=== PATIENT | male | born 1965 ===

== ENCOUNTER 2020-09-25 06:50 | Outpatient (REF) | payer OTHER, SELFPAY ==
[2020-09-25 08:48] LABS: PSA,Total (Free>4and<10) 4.02 ng/mL (0.00-4.00)
[2020-09-26 11:03] LABS: Percent Free Prostate Spec Ag 26 % (calc) (>25); Prostate Specific Ag Total 3.8 ng/mL (< OR = 4.0)
== END 2020-09-25 06:51 | disposition home or self-care (01) ==
LOC: HO.LAB 06:50
PROVIDERS: PCP Internal Medicine; Visit Provider Urology
DX: N40.0 Benign prostatic hyperplasia without lower urinary tract symptoms (principal); Z12.5 Encounter for screening for malignant neoplasm of prostate
CPT/HCPCS: 36415; 84153; 84154

== ENCOUNTER 2021-09-17 14:59 | Outpatient (REF) | payer OTHER, SELFPAY ==
[2021-09-17 15:14] LABS: MANUAL DIFF FLAG NO
[2021-09-17 15:33] LABS: Basophils Absolute Auto 0.1 X10*3/uL (0.0-0.2); Basophils Percent Auto 0.6 % (0-2); Eosinophils Absolute Auto 0.2 X10*3/uL (0.0-0.4); Eosinophils Percent Auto 2.2 % (0-4); Hematocrit 44.7 % (42.0-52.0); Hemoglobin 14.9 g/dl (14.0-18.0); Imm Gran Abs Auto 0.02 X10*3/uL (0.00-0.03); Imm Gran Pct Auto 0.2 % (0.0-0.4); Mean Corpuscular HGB Conc 33.3 g/dl (31.0-36.0); Mean Corpuscular Hemoglobin 29.3 pg (27.0-33.0); Mean Corpuscular Volume 87.8 fL (80.0-98.0); Mean Platelet Volume 10.6 fL (9.4-12.4); Monocytes Absolute Auto 0.8 X10*3/uL (0.1-1.2); Monocytes Percent Auto 8.5 % (2-11); Neutrophils Percent Auto 66.5 % (45-73); Platelet Count 279 X10*3/uL (160-400); Red Blood Count 5.09 X10*6/uL (4.60-5.80); Red Cell Distribution Width 12.9 % (11.0-16.0); White Blood Count 9.1 X10*3/uL (4.8-10.8)
[2021-09-17 15:59] LABS: Alanine Aminotransferase 17 U/L (0-40); Albumin Level 4.5 g/dL (3.5-5.0); Alkaline Phosphatase 61 U/L (39-117); Anion Gap 14 (12-20); Aspartate Amino Transferase 20 U/L (5-37); Bilirubin Total 0.8 mg/dL (0.0-1.0); Blood Urea Nitrogen 14 mg/dL (9-16); Carbon Dioxide 26 mmol/L (22-29); Chloride 104 mmol/L (96-108); Cholesterol 177 mg/dL; Estimated Glomerular Filt Rate > 60; Glucose Random 80 mg/dL (60-115); HDL Cholesterol 42 mg/dL; LDL Cholesterol Calculated 125 mg/dl; Potassium 4.1 mmol/L (3.3-5.1); Sodium 140 mmol/L (135-145); Total Protein 7.3 g/dL (6.5-8.0); Triglycerides 53 mg/dL
[2021-09-17 16:21] LABS: Free T4 (Free Thyroxine) 0.96 ng/dL (0.71-1.85); Thyroid Stimulating Hormone 1.56 uIU/mL (0.32-4.0); Vitamin D 25-OH Total 19.9 ng/mL (>30)
[2021-09-17 16:29] LABS: Folate 11.9 ng/mL (> or = 4.0); Vitamin B12 570 pg/mL (200-900)
[2021-09-22 20:36] LABS: PSA, Ultra Sensitive 3.07 ng/mL
== END 2021-09-17 15:00 | disposition home or self-care (01) ==
LOC: HO.LAB 14:59
PROVIDERS: PCP Internal Medicine; Visit Provider Internal Medicine
DX: E78.00 Pure hypercholesterolemia, unspecified (principal); R97.20 Elevated prostate specific antigen [PSA]; K21.9 Gastro-esophageal reflux disease without esophagitis; Z12.5 Encounter for screening for malignant neoplasm of prostate
CPT/HCPCS: 36415; 80053; 80061; 82306; 82607; 82746; 84153; 84439; 84443; 85025

== ENCOUNTER 2022-08-03 08:32 | Emergency (ER) | payer OTHER, SELFPAY ==
[2022-08-03 09:12] VITALS: BP 147/93; PULSE 76; RESP 18; O2SAT 97; BMI 30.4
--- NOTE | 2022-08-03 09:26 | ED_ITS ---
HPI - Skin/Abscess/Foreign Bdy General Chief complaint: Skin/Abscess/Foreign Body Stated complaint: Rash on arms, stomach , legs Time Seen by Provider: 08/03/22 09:16 History of Present Illness HPI narrative: Patient complains of itchy rash on his arms legs and stomach which started about a week ago and is slowly spreading, there is nothing else associated with the rash there is no pain there is no bleeding there is no fever Related Data Previous Rx's Medication Instructions Recorded hydrocortisone 2.5 % topical cream 1 appl MD BID-QID PRN hemorrhoids 02/04/22 with perineal applicator 15 days #30 grams (Proctosol HC) cetirizine 10 mg tablet 10 mg PO DAILY PRN rash and itch 08/03/22 #10 tabs prednisone 20 mg tablet 60 mg PO DAILY 3 days #9 tabs 08/03/22 Allergies Allergy/AdvReac Type Severity Reaction Status Date / Time penicillin G Allergy Mild rash Verified 02/04/22 13:21 latex [LATEX] Allergy Unknown RASH Verified 02/04/22 13:21 penicillin V Allergy Unknown rash Verified 02/04/22 13:21 Penicillins [PENICILLINS] Allergy Unknown HIVES Verified 02/04/22 13:21 Review of Systems Review of Systems: positive for skin rash Negatives are no fever no chills no dizziness no headache no neck pain no stiff neck no difficulty breathing or swallowing no throat swelling no drooling no chest pain no shortness of breath no wheezing no abdominal pain no nausea or vomiting no joint swelling no pain Yes all other systems are reviewed and are negative [facility] Past Medical History Source: nursing notes reviewed Medical History (Updated 08/04/22 @ 00:00 by Honey Caban) GERD (gastroesophageal reflux disease) Hypercholesterolemia Vitamin D deficiency Surgical History (Updated 09/12/20 @ 12:43 by ALEXANDER Flowers) History of removal of cyst Family History Family History (Updated 09/12/20 @ 12:44 by ALEXANDER Flowers) Father Colon cancer Hypercholesteremia Mother Osteoporosis Thyroid disease Past heart attack Paternal Grandfather Myocardial infarction Brother In good health Brother In good health Social History Social History (Updated 10/02/21 @ 16:27 by Agustin Beauchamp MD) Alcohol intake: current Patient Tobacco Use Status: Never used Tobacco e-Cigarette/Vaping Use: Never Used Second Hand Smoke Exposure: No Advance Directives: No Advance Directives Information Provided: No Physical Exam Vital Signs: Vital Signs: Last Vital Signs Temp 98.6 F 08/03/22 09:31 Pulse 76 08/03/22 09:12 Resp 18 08/03/22 09:12 BP 147/93 H 08/03/22 09:12 Pulse Ox 97 08/03/22 09:12 O2 Del Method 08/03/22 09:12 BMI result Body Mass Index 30.4 general appearance comfortable relax no distress Eyes no redness or discharge The sinuses are not tender there is no congestion The pharynx is clear without redness swelling or exudate, there is no swelling of lips tongue or uvula there is no drooling voice is normal, there are no sores in the mouth, membranes are moist Neck is supple Chest clear to auscultation bilateral with full symmetric equal breath sounds no wheezing Abdomen soft nontender Extremities for range of motion x4 Skin there is a diffuse maculopapular rash on chest arms legs, there is no rash in the web spaces between the fingers, there is no tenderness, no petechiae no purpura Course Course Course Narrative: patient with nonspecific rash is treated with antihistamine and steroids, at this point there is nothing associated with the rash there are no bullae no petechiae there is no evidence of cellulitis no wounds and he is discharged with symptomatic treatment Medications Administered Discontinued Medications Generic Name Dose Route Start Last Admin Trade Name Wileyq PRN Reason Stop Dose Admin Loratadine 10 mg 08/03/22 09:27 08/03/22 09:45 Loratadine 10 Mg Tablet PO 08/03/22 09:28 10 mg ONCE ONE Administration Prednisone 60 mg 08/03/22 09:27 08/03/22 09:45 Prednisone 20 Mg Tablet PO 08/03/22 09:28 60 mg ONCE ONE Administration Discharge Plan Discharge Clinical Impression: Rash Patient Disposition: Home, Self-Care Additional Instructions: we are treating the rash with steroid and antihistamine Hopefully this will get rid of the rash, but if it does not follow with your doctor and you may need a referral to a word processing operator Return to the ER any time if the rash becomes painful if you get a fever for any worse condition or any concerns Prescriptions: New prednisone 20 mg tablet 60 mg PO DAILY 3 Days Qty: 9 0RF cetirizine 10 mg tablet 10 mg PO DAILY PRN (Reason: rash and itch) Qty: 10 0RF No Action hydrocortisone [Proctosol HC] 2.5 % cream with perineal applicator 1 appl MD BID-QID PRN (Reason: hemorrhoids) 15 Days Qty: 30 0RF Interventions: ED Discharge Assessment Last Done: 08/03/22 09:49 Discharge Date/Time: 08/03/22 09:54
[2022-08-03 09:31] VITALS: TEMP 37
[2022-08-03] MEDS: predniSONE 20 MG TABLET 60 MG PO (09:45)
[2022-08-03] MEDS: Loratadine 10 MG TABLET PO (09:45)
== END 2022-08-03 09:54 | disposition home or self-care (01) ==
PROVIDERS: Emergency Provider Emergency Medicine; PCP Internal Medicine
DX: R21 Rash and other nonspecific skin eruption (principal)
CPT/HCPCS: 99283

== ENCOUNTER 2022-11-08 06:43 | Outpatient (REF) | payer OTHER, SELFPAY ==
[2022-11-08 06:51] LABS: MANUAL DIFF FLAG NO
[2022-11-08 07:31] LABS: Basophils Absolute Auto 0.1 X10*3/uL (0.0-0.2); Basophils Percent Auto 0.7 % (0-2); Eosinophils Absolute Auto 0.5 X10*3/uL (0.0-0.4); Eosinophils Percent Auto 7.1 % (0-4); Hematocrit 46.7 % (42.0-52.0); Hemoglobin 15.6 g/dl (14.0-18.0); Imm Gran Abs Auto 0.02 X10*3/uL (0.00-0.03); Imm Gran Pct Auto 0.3 % (0.0-0.4); Lymphocytes Absolute Auto 1.9 X10*3/uL (1.2-4.9); Lymphocytes Percent Auto 25.1 % (20-40); Mean Corpuscular HGB Conc 33.4 g/dl (31.0-36.0); Mean Corpuscular Hemoglobin 29.8 pg (27.0-33.0); Mean Corpuscular Volume 89.1 fL (80.0-98.0); Mean Platelet Volume 11.1 fL (9.4-12.4); Monocytes Absolute Auto 0.8 X10*3/uL (0.1-1.2); Monocytes Percent Auto 10.8 % (2-11); Neutrophils Absolute Auto 4.2 x10*3/uL (2.0-8.3); Platelet Count 297 X10*3/uL (160-400); Red Blood Count 5.24 X10*6/uL (4.60-5.80); Red Cell Distribution Width 13.1 % (11.0-16.0); White Blood Count 7.5 X10*3/uL (4.8-10.8)
[2022-11-08 08:03] LABS: Alanine Aminotransferase 18 U/L (0-40); Albumin Level 4.5 g/dL (3.5-5.0); Alkaline Phosphatase 64 U/L (39-117); Anion Gap 15 (12-20); Aspartate Amino Transferase 20 U/L (5-37); Blood Urea Nitrogen 19 mg/dL (9-16); Calcium 9.5 mg/dL (8.4-10.2); Carbon Dioxide 26 mmol/L (22-29); Chloride 102 mmol/L (96-108); Cholesterol 184 mg/dL; Estimated Glomerular Filt Rate > 60; Glucose Random 85 mg/dL (60-115); HDL Cholesterol 46 mg/dL; LDL Cholesterol Calculated 128 mg/dl; Potassium 4.1 mmol/L (3.3-5.1); Sodium 139 mmol/L (135-145); Triglycerides 50 mg/dL
[2022-11-08 08:34] LABS: Folate 6.8 ng/mL (> or = 4.0); Free T4 (Free Thyroxine) 1.01 ng/dL (0.71-1.85); Prostate Specific Antigen Scr 2.51 ng/mL (<0.05-4.0); Thyroid Stimulating Hormone 1.66 uIU/mL (0.32-4.0); Vitamin B12 501 pg/mL (200-900)
== END 2022-11-08 06:44 | disposition home or self-care (01) ==
LOC: HO.LAB 06:43
PROVIDERS: PCP Internal Medicine; Visit Provider Internal Medicine
DX: K21.9 Gastro-esophageal reflux disease without esophagitis (principal); E78.00 Pure hypercholesterolemia, unspecified; R97.20 Elevated prostate specific antigen [PSA]; Z12.5 Encounter for screening for malignant neoplasm of prostate
CPT/HCPCS: 36415; 80053; 80061; 82607; 82746; 84153; 84439; 84443; 85025

== ENCOUNTER 2023-04-15 15:24 | Outpatient (AMB) | payer OTHER, SELFPAY ==
[2023-04-15 15:29] VITALS: BP 130/76; PULSE 76; O2SAT 98; BMI 28.5
--- NOTE | 2023-04-15 15:29 | A.OFFPC_ITS ---
Vital Signs 04/15/23 15:29 Height 5 ft 6 in Weight 176 lb 6 oz BMI 28.5 BP 130/76 Blood Pressure Location Lt brachial Position Sitting Pulse 76 Pulse Source Pulse Oximeter Pulse Oximetry (%) 98 Oxygen Delivery Method Room Air Intake Visit Reasons: cholesterol and PSA elevation Allergies penicillin G Allergy (Mild, Verified 04/15/23 15:30) rash latex [LATEX] Allergy (Unknown, Verified 04/15/23 15:30) RASH penicillin V Allergy (Unknown, Verified 04/15/23 15:30) rash Penicillins [PENICILLINS] Allergy (Unknown, Verified 04/15/23 15:30) HIVES Tobacco use date assessed: 10/08/22 Dental Screening Dental Screen Date: 04/15/23 Did you have a dental visit in the last 12 months?: Yes Did you have a dental problem in the last 6 months where you did not have access to dental care?: No Was dental information given to patient?: Patient has dentist HPI cholesterol and PSA elevation HPI Details 57-year-old overweight male with a history of GERD hypercholesterolemia constipation coming in for follow-up. Last seen in September 2022 requested blood work had a physical at that time. Patient is here for follow-up. seen dermatology - was told psoriasis and advised less meat, mild in diet, low fried in diet. saw ENT also nasal congestion and was told has nasal polyp- advised nasal steroid but pateint declined [facility] Medical History (Updated 04/15/23 @ 16:28 by Agustin Beauchamp MD) GERD (gastroesophageal reflux disease) Hypercholesterolemia Vitamin D deficiency Yeast infection of the skin Surgical History History of removal of cyst Family History (Updated 04/15/23 @ 15:31 by Hevaenly Echeverria MA) Father Colon cancer Hypercholesteremia Mother Osteoporosis Thyroid disease Past heart attack Paternal Grandfather Myocardial infarction Brother In good health Brother In good health Social History (Updated 10/08/22 @ 16:19 by Agustin Beauchamp MD) Housing: Apartment Alcohol intake: current Patient Tobacco Use Status: Never used Tobacco e-Cigarette/Vaping Use: Never Used Second Hand Smoke Exposure: No Current occupational status: employed Cognitive needs: No Hearing needs: No Vision needs: Yes Questionnaire PHQ-9 Over the last 2 weeks, how often have you been bothered by any of the following problems? 1. Little interest or pleasure in doing things: not at all 2. Feeling down, depressed, or hopeless: not at all 3. Trouble falling or staying asleep, or sleeping too much: not at all 4. Feeling tired or having little energy: not at all 5. Poor appetite or overeating: not at all 6. Feeling bad about yourself - or that you are a failure or have let yourself or your family down: not at all 7. Trouble concentrating on things, such as reading the newspaper or watching television: not at all 8. Moving or speaking so slowly that other people could have noticed. Or the opposite - being so fidgety or restless that you have been moving around a lot more than usual: not at all 9. Thoughts that you would be better off or of hurting yourself in some way: not at all Total score: 0 Depression Screening Interpretation: Negative 21680 - PHQ-9 Billing: Yes Source: Developed by Drs. Khalif Marie, Joycelyn Atkins, Germán Palomino and colleagues, with an educational lorri from [employer]. Thrive Questionnaire Date Thrive assessed: 10/08/22 AUDIT C Alcohol Use Questionnaire (AUDIT-C) 1. How often do you have a drink containing alcohol?: Monthly or less 2. How many drinks containing alcohol do you have on a typical day when you are drinking?: 1 or 2 3. How often do you have six or more drinks on one occasion?: Never Total Score: 1 Score Reviewed/Action Taken: No GUANAKITO-7 AMB Questionnaire GUANAKITO-7 Date GUANAKITO - 7 assessed: 10/08/22 Source: Developed by Drs. Khalif Marie, Germán Smith and colleagues, with an educational lorri from [employer]. Physical exam (Primary Care) Vital Signs: Last Vital Signs Pulse 76 04/15/23 15:29 BP 130/76 04/15/23 15:29 Pulse Ox 98 04/15/23 15:29 Oxygen Delivery Method Room Air 04/15/23 15:29 BMI result Body Mass Index 28.5 Tobacco/Smoking Status: Tobacco use Status Tobacco use date assessed 10/08/22 04/15/23 15:37 Patient Tobacco Use Status Never used Tobacco 04/15/23 15:37 e-Cigarette/Vaping Use Never Used 04/15/23 15:37 PHQ-9: PHQ-9 Score PHQ-9: Total score 0 04/15/23 15:37 Depression Screening Interpretation: Negative Thrive Assessment: Date of Thrive Assessment Date Thrive assessed 10/08/22 04/15/23 15:37 Const General: alert; No acute distress Eyes Conjunctivae: conjunctivae normal Resp Auscultation: clear to auscultation bilaterally Cardio Rate: regular rate Rhythm: regular rhythm GI Inspection: Yes normal to inspection Extrem General: Yes normal to inspection and No edema Assessment and Plan Assessment & Plan (1) GERD (gastroesophageal reflux disease): Code(s): K21.9 - Gastro-esophageal reflux disease without esophagitis Qualifiers: Esophagitis presence: without esophagitis Qualified Code(s): K21.9 - Gastro-esophageal reflux disease without esophagitis Plan: Avoid the foods that causes that usually spicy foods, tomato products, juices, coffee, soda and foods that your sensitive to. After eating do not lie down, allow 3-4 hours before in lie down. And keep the head of bed above 30 degrees to avoid the acid from going up. (2) Hypercholesterolemia: Code(s): E78.00 - Pure hypercholesterolemia, unspecified Plan: Avoid fried foods, chicken skin, eggs, butter margarine, pastries and meat. Be it pork or beef they have a lot of cholesterol LDL goal of less than 130 and triglyceride of less than 150 (3) PSA elevation: Code(s): R97.20 - Elevated prostate specific antigen [PSA] Plan: Stable (4) Rosacea: Code(s): L71.9 - Rosacea, unspecified Plan: seeing dermatology (5) Psoriasis: Code(s): L40.9 - Psoriasis, unspecified Plan: seeing dermatology (6) Lateral epicondylitis of left elbow: Code(s): M77.12 - Lateral epicondylitis, left elbow Plan: discussed about treatment (7) Nasal polyp: Code(s): J33.9 - Nasal polyp, unspecified Plan: ff up with ENT Coding Level of Care Code Est Pt Level 4 (18166) Diagnoses GERD (gastroesophageal reflux disease) K21.9 Esophagitis presence: without esophagitis Hypercholesterolemia E78.00 PSA elevation R97.20 Rosacea L71.9 Psoriasis L40.9 Lateral epicondylitis of left elbow M77.12 Nasal polyp J33.9
== END 2023-04-15 16:33 | disposition home or self-care (01) ==
PROVIDERS: PCP Internal Medicine; Visit Provider Internal Medicine
DX: K21.9 Gastro-esophageal reflux disease without esophagitis (principal); E78.00 Pure hypercholesterolemia, unspecified; R97.20 Elevated prostate specific antigen [PSA]; L71.9 Rosacea, unspecified; L40.9 Psoriasis, unspecified; M77.12 Lateral epicondylitis, left elbow; J33.9 Nasal polyp, unspecified
CPT/HCPCS: 99214

== ENCOUNTER 2023-07-16 14:09 | Outpatient (AMB) | payer OTHER, SELFPAY ==
--- NOTE | 2023-07-16 14:10 | MHC.OFFWIV ---
Intake Vital Signs 07/16/23 14:13 Height 5 ft 6 in Weight 179 lb BMI 28.9 BP 142/78 H Blood Pressure Location Rt brachial Position Sitting Pulse 77 Pulse Source Pulse Oximeter Temp 97.9 F Temp Source Temporal Artery Scan Pulse Oximetry (%) 96 Oxygen Delivery Method Room Air Intake Visit Reasons: EST/congestion (lobby masked) Intake Note: Pt is here c/o chest and nose congestion for one week. Patient Tobacco Use Status: Never used Tobacco Allergies penicillin G Allergy (Mild, Verified 07/16/23 14:12) rash latex [LATEX] Allergy (Unknown, Verified 07/16/23 14:12) RASH penicillin V Allergy (Unknown, Verified 07/16/23 14:12) rash Penicillins [PENICILLINS] Allergy (Unknown, Verified 07/16/23 14:12) HIVES Medication List - Last Reconciled 07/16/23 by Joleen Quintana PA-C betamethasone dipropionate 0.05% appl topical calcipotriene 0.005% appl topical BID cetirizine (Zyrtec) 10 mg PO DAILY PRN doxycycline hyclate 100 mg PO BID metronidazole 0.75% appl topical PRN Do you need a note to return to daycare/school/sports/work: No HPI HPI Comments History of Present Illness Details Friday started with congestion Took OTC medicine without relief + blocked nose and yellow mucus expressed He is trying to cough worse at night but no mucus helping No fever but + chills on Friday No body aches or fatigue He did one COVID test which was negative, no known 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 Pt denies chest pain or SOB but feels mucus in nose and chest + forehead/maxillary sinus pressure No ear pain but + blocked PFSH Medical History (Updated 07/16/23 @ 14:52 by Joleen Quintana PA-C) Yeast infection of the skin Vitamin D deficiency Hypercholesterolemia GERD (gastroesophageal reflux disease) Surgical History History of removal of cyst Family History (Updated 04/15/23 @ 15:31 by ALEXANDER Akins) Father Colon cancer Hypercholesteremia Mother Osteoporosis Thyroid disease Past heart attack Paternal Grandfather Myocardial infarction Brother In good health Brother In good health Social History (Updated 10/08/22 @ 16:19 by Agustin Beauchamp MD) Housing: Apartment Alcohol intake: current Patient Tobacco Use Status: Never used Tobacco e-Cigarette/Vaping Use: Never Used Second Hand Smoke Exposure: No Current occupational status: employed Cognitive needs: No Hearing needs: No Vision needs: Yes Physical Exam Vital Signs: Last Vital Signs Temp 97.9 F 07/16/23 14:13 Pulse 77 07/16/23 14:13 BP 142/78 H 07/16/23 14:13 Pulse Ox 96 07/16/23 14:13 Oxygen Delivery Method Room Air 07/16/23 14:13 BMI result Body Mass Index 28.9 General: Non-toxic, NAD. Speaking full sentences. Skin: Warm dry throughout Eye: PERRL, EOMI Lymph: No lymphadenopathy HENT: Airway patent. Uvula midline. No pharyngeal erythema or edema. 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 Bilateral canals clear. TM non-erythematous, non-bulging. + small fluid bilaterally. No TM perforation or hemotympanum noted. + sinus tenderness maxillary bilateral to palpation Respiratory: CTA bilaterally. No wheezes, rales or rhonchi Cardiac: RRR. No murmur MSK: Full ROM extremities. Neurology: A/O. No aphasia or facial droop. Gait without abnormality Psych: Good mood and affect Assessment & Plan Assessment & Plan (1) Sinusitis: Code(s): J32.9 - Chronic sinusitis, unspecified Qualifiers: Sinusitis location: maxillary Chronicity: acute Recurrence: non-recurrent Qualified Code(s): J01.00 - Acute maxillary sinusitis, unspecified Plan Patient seen and evaluated. Lungs CTA Discussed HTN and most likely secondary to OTC decongestant use. He will monitor Doxy for symptoms to take with food Patient gave verbal understanding and had no additional questions or concerns at time of discharge All questions answered Medications: New doxycycline hyclate 100 mg PO BID 14 caps 0RF J32.9 - Chronic sinusitis, unspecified Coding Level of Care Code Est Pt Level 3 (63811) Diagnoses Acute non-recurrent maxillary sinusitis J01.00 Sinusitis location: maxillary Chronicity: acute Recurrence: non-recurrent
[2023-07-16 14:13] VITALS: BP 142/78; PULSE 77; TEMP 36.6; O2SAT 96; BMI 28.9
== END 2023-07-16 15:17 | disposition home or self-care (01) ==
PROVIDERS: PCP Internal Medicine; Visit Provider Physician Assistant
DX: J01.00 Acute maxillary sinusitis, unspecified (principal)
CPT/HCPCS: 99213

== ENCOUNTER 2023-08-27 16:24 | Emergency (ER) | payer OTHER, SELFPAY ==
[2023-08-27 16:37] VITALS: BP 179/106; PULSE 82; RESP 18; TEMP 37.1; O2SAT 98; BMI 28.9
--- NOTE | 2023-08-27 16:37 | ED_ITS ---
HPI - Eye Problem General Chief complaint: Eye Problems Stated complaint: eye injury Time Seen by Provider: 08/27/23 16:42 Source: patient, RN notes reviewed and old records reviewed Mode of arrival: ambulatory History of Present Illness HPI Narrative: 57-year-old male with a past medical history of HLD, GERD, presenting to the ED complaining of left eye pain, irritation, and feeling scratched s/p accidentally poking himself in the left eye with his glasses 4 days ago. Denies wearing contacts. Denies vision change/loss, nausea/vomiting, floaters MD chief complaint: eye redness and eye injury Onset (ago): day(s) Related Data Home Medications Medication Instructions Recorded Confirmed betamethasone dipropionate 0.05 % appl topical 04/15/23 07/16/23 topical cream calcipotriene 0.005 % topical cream appl topical BID 04/15/23 07/16/23 metronidazole 0.75 % topical cream appl topical PRN 04/15/23 07/16/23 Previous Rx's Medication Instructions Recorded cetirizine 10 mg tablet (Zyrtec) 10 mg PO DAILY PRN allergy 08/14/22 symptoms #30 tabs doxycycline hyclate 100 mg capsule 100 mg PO BID #14 caps 07/16/23 erythromycin 5 mg/gram (0.5 %) eye 1 appl ophthalmic (eye) QID 7 days 08/27/23 ointment #3.5 grams Allergies Allergy/AdvReac Type Severity Reaction Status Date / Time penicillin G Allergy Mild rash Verified 07/16/23 14:12 latex [LATEX] Allergy Unknown RASH Verified 07/16/23 14:12 penicillin V Allergy Unknown rash Verified 07/16/23 14:12 Penicillins [PENICILLINS] Allergy Unknown HIVES Verified 07/16/23 14:12 Review of Systems Review of Systems: Constitutional: No Fever, No Chills, No Fatigue, No Malaise ENT/Mouth: No Ear Pain, No Nasal Congestion, No sore throat, No Rhinorrhea, No Swallowing Difficulty Eyes: +Eye Pain, No Swelling,+ Redness, No Foreign Body, No Discharge, No Vision Changes Cardiovascular: No Chest Pain, No SOB, No Palpitations Respiratory: No Cough, No Dyspnea Gastrointestinal: No Nausea, No Vomiting, No Abdominal pain Musculoskeletal: No joint pain, No Myalgias, No Joint Swelling Skin: No Skin Lesions, No rash Neuro: No Weakness, No Headache Yes all other systems are reviewed and are negative Constitutional: Constitutional: Reports as per [facility] Past Medical History Attestation statement: The following information was validated with the patient. Source: old records reviewed Onset Date is defined in the Problem List Problems that require an onset date and time if occurred within 24 hrs of arrival to the ED Aortic Dissection and Rupture; Neurologic impairment; Cardiopulmonary Arrest; Endotracheal Intubation; Insertion or Replacement of Mechanical Circulatory Assist Device Medical History Yeast infection of the skin Vitamin D deficiency Hypercholesterolemia GERD (gastroesophageal reflux disease) Surgical History History of removal of cyst Family History Family History Father Colon cancer Hypercholesteremia Mother Osteoporosis Thyroid disease Past heart attack Paternal Grandfather Myocardial infarction Brother In good health Brother In good health Social History Social History Housing: Apartment Alcohol intake: current Patient Tobacco Use Status: Never used Tobacco e-Cigarette/Vaping Use: Never Used Second Hand Smoke Exposure: No Advance Directives: No Advance Directives Information Provided: No Current occupational status: employed Cognitive needs: No Hearing needs: No Vision needs: Yes Physical Exam Vital Signs: Vital Signs: Last Vital Signs Temp 98.7 F 08/27/23 16:37 Pulse 82 08/27/23 16:37 Resp 18 08/27/23 16:37 BP 179/106 H 08/27/23 16:37 Pulse Ox 98 08/27/23 16:37 O2 Del Method Room Air 08/27/23 16:37 BMI result Body Mass Index 28.9 Const: General: cooperative, healthy appearing and no acute distress Orientation/consciousness: patient oriented x3 Limitations: no limitations HEENT: Head: Yes normal to inspection and Yes atraumatic Ears: hearing grossly normal bilaterally General nose exam: Normal external nose present Face and sinus: Yes normal facial exam Eyes: Other: VA right 20/50, left 20/70 General: appearance normal, both eyes and all related structures Periorbital: periorbital findings normal Conjunctivae: conjunctival abnormal left conjunctival injection localized; without discharge and without subconjunctival hemmorhages Sclerae: sclerae normal Corneas: corneas abnormal on the left fluorescein used and abrasion at the following clock position (4 o'clock); non-punctate; without dendrites present and with no foreign body noted Pupils: Equal, round and reactive pupils present EOM: EOMs intact bilaterally Neck: Neck: Yes normal visual inspection and Yes no meningeal signs Resp: Effort & Inspection: normal respiratory effort and no respiratory distress Cardio: Rate: regular rate Skin: Rashes: no rashes Wounds: no wounds Neuro: General: patient oriented x3, tone normal and no meningeal signs Cranial nerves: Yes CN's II-XII intact bilaterally and Yes Equal, round and reactive pupils present Gait exam (Neuro): Normal gait present Extrem: General: Yes normal to inspection Course Course Course Narrative: -patient reports history of hypertension, not currently on any medications, states he was never Rx medication for BP. Denies headache, dizziness, chest pain. Discussed risks of hypertension and risk of stroke/ACS and needed close PCP follow-up Medications Administered Discontinued Medications Generic Name Dose Route Start Last Admin Trade Name Freq PRN Reason Stop Dose Admin Fluorescein Sodium 1 strip 08/27/23 16:39 08/27/23 16:46 Fluorescein Sodium Strip EYE-LEFT 08/27/23 16:40 1 strip ONCE ONE Administration Tetracaine HCl 1 drop 08/27/23 16:39 08/27/23 16:46 Tetracaine Hcl/Pf 0.5% Oph Karla 4 Ml Drops EYE-LEFT 08/27/23 16:40 Not Given ONCE ONE Medical Decision Making Medical Decision Making MDM Narrative: 57-year-old male with a past medical history of HLD, GERD, presenting to the ED complaining of left eye pain, irritation, and feeling scratched s/p accidentally poking himself in the left eye with his glasses 4 days ago. On exam hypertensive, NAD, nontoxic appearing, physical exam as noted above with left eye conjunctival injection and fluorescein uptake with noted small abrasion at 04:00 o'clock position. No evidence of ulceration. No evidence of globe rupture or subconjunctival hemorrhage. No periorbital/orbital cellulitis Plan: Visual acuity, fluorescein staining, ophthalmology follow-up Please refer to course for remaining clinical decision making, interpretation of labs/imaging results, and discussions with consultants and/or family members. Differential Diagnosis Differential Diagnoses: The differential diagnosis associated with the presentation includes As above External Record Review External record reviewed: Inpatient record, Office record, Outpatient record, Prior outpatient labs, Prior outpatient radiology, Primary care record and Outside ED record Tests considered The following testing was considered but not selected: As above Prescription Management I considered prescription management with: Pain Medication and Antibiotic Discharge Plan Discharge Clinical Impression: Corneal abrasion, HTN (hypertension) Patient Disposition: Home, Self-Care Instructions: Corneal Abrasion (DC) Additional Instructions: Please use erythromycin eye ointment as prescribed Follow-up with Ophthalmology His symptoms persist or worsen you develop nausea/vomiting, vision change or loss return to the ED YOU HAVE HIGH BLOOD PRESSURE PLEASE FOLLOW UP WITH YOUR PCP Prescriptions: New erythromycin 5 mg/gram (0.5 %) ointment 1 appl ophthalmic (eye) QID 7 Days Qty: 3.5 0RF No Action calcipotriene 0.005 % cream topical BID betamethasone dipropionate 0.05 % cream topical metronidazole 0.75 % cream topical PRN cetirizine [Zyrtec] 10 mg tablet 10 mg PO DAILY PRN (Reason: allergy symptoms) Qty: 30 0RF doxycycline hyclate 100 mg capsule 100 mg PO BID Qty: 14 0RF Referrals: Charanjit Chicas [Physician] - Desi Branham MD [Physician] - Daja Ge MD [Physician] - PoAgustin MD [Primary Care Provider] -
[2023-08-27] MEDS: Fluorescein Sodium STRIP 1 STRIP EYE-LEFT (16:46)
[2023-08-27 17:08] VITALS: BP 170/102; PULSE 72; RESP 19; O2SAT 98
== END 2023-08-27 17:10 | disposition home or self-care (01) ==
PROVIDERS: Emergency Provider Student in an Organized Health Care Education/Training Program; PCP Internal Medicine
DX: S05.02XA Injury of conjunctiva and corneal abrasion without foreign body, left eye, initial encounter (principal); W22.8XXA Striking against or struck by other objects, initial encounter; I10 Essential (primary) hypertension; E78.00 Pure hypercholesterolemia, unspecified; Y93.9 Activity, unspecified; Y92.9 Unspecified place or not applicable; Y99.9 Unspecified external cause status
CPT/HCPCS: 99283

== ENCOUNTER 2023-08-28 12:40 | Outpatient (AMB) | payer OTHER, SELFPAY ==
[2023-08-28 12:44] VITALS: BP 200/120; PULSE 89; O2SAT 98; BMI 28.4
--- NOTE | 2023-08-28 12:44 | MHC.PC.OV ---
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 Allergies penicillin G Allergy (Mild, Verified 08/28/23 12:44) rash latex [LATEX] Allergy (Unknown, Verified 08/28/23 12:44) RASH penicillin V Allergy (Unknown, Verified 08/28/23 12:44) rash Penicillins [PENICILLINS] Allergy (Unknown, Verified 08/28/23 12:44) HIVES Medication List - Last Reconciled 08/28/23 by Agustin Beauchamp MD betamethasone dipropionate 0.05% appl topical calcipotriene 0.005% appl topical BID cetirizine (Zyrtec) 10 mg PO DAILY PRN erythromycin 1 appl ophthalmic (eye) QID 7 days lisinopril-hydrochlorothiazide 10-12.5 mg 1 tab PO DAILY metronidazole 0.75% appl topical PRN Tobacco use date assessed: 08/28/23 HPI High BP HPI Details 57-year-old overweight male with GERD hypercholesterolemia psoriasis elevated PSA coming in for follow-up. Last seen in March 2023 colonoscopy January 2019 with tubular adenoma. Review of the notes was in the ER in August 27 for left eye pain poking himself with his glasses corneal abrasion placed on erythromycin. Urgent Center visit June have sinus congestion placed on doxycycline. request vitamin d testing [facility] Medical History (Updated 08/28/23 @ 13:07 by Agustin Beauchamp MD) HTN (hypertension) Yeast infection of the skin Vitamin D deficiency Hypercholesterolemia GERD (gastroesophageal reflux disease) Surgical History History of removal of cyst Family History Father Colon cancer Hypercholesteremia Mother Osteoporosis Thyroid disease Past heart attack Paternal Grandfather Myocardial infarction Brother In good health Brother In good health Social History Housing: Apartment Alcohol intake: current Patient Tobacco Use Status: Never used Tobacco e-Cigarette/Vaping Use: Never Used Second Hand Smoke Exposure: No Current occupational status: employed Cognitive needs: No Hearing needs: No Vision needs: Yes Questionnaire Thrive Questionnaire Date Thrive assessed: 10/08/22 AUDIT C Alcohol Use Questionnaire (AUDIT-C) 1. How often do you have a drink containing alcohol?: Monthly or less 2. How many drinks containing alcohol do you have on a typical day when you are drinking?: 1 or 2 3. How often do you have six or more drinks on one occasion?: Never Total Score: 1 Score Reviewed/Action Taken: No GUANAKITO-7 AMB Questionnaire GUANAKITO-7 Date GUANAKITO - 7 assessed: 10/08/22 Source: Developed by Drs. Khalif Marie, Joycelyn Atkins, Germán Palomino and colleagues, with an educational lorri from [employer]. Physical exam (Primary Care) Vital Signs: Last Vital Signs Pulse 89 08/28/23 12:44 BP 200/120 H 08/28/23 12:44 Pulse Ox 98 08/28/23 12:44 Oxygen Delivery Method Room Air 08/28/23 12:44 BMI result Body Mass Index 28.4 Tobacco/Smoking Status: Tobacco use Status Tobacco use date assessed 08/28/23 08/28/23 12:45 Patient Tobacco Use Status Never used Tobacco 08/28/23 12:45 e-Cigarette/Vaping Use Never Used 08/28/23 12:45 Thrive Assessment: Date of Thrive Assessment Date Thrive assessed 10/08/22 08/28/23 12:45 Const General: alert; No acute distress Eyes Conjunctivae: conjunctivae normal Resp Auscultation: clear to auscultation bilaterally Cardio Rate: regular rate Rhythm: regular rhythm GI Inspection: Yes normal to inspection Extrem General: Yes normal to inspection and No edema Assessment and Plan Assessment & Plan (1) GERD (gastroesophageal reflux disease): Code(s): K21.9 - Gastro-esophageal reflux disease without esophagitis Qualifiers: Esophagitis presence: without esophagitis Qualified Code(s): K21.9 - Gastro-esophageal reflux disease without esophagitis Plan: Avoid the foods that causes that usually spicy foods, tomato products, juices, coffee, soda and foods that your sensitive to. After eating do not lie down, allow 3-4 hours before in lie down. And keep the head of bed above 30 degrees to avoid the acid from going up. (2) Hypercholesterolemia: Code(s): E78.00 - Pure hypercholesterolemia, unspecified Plan: Avoid fried foods, chicken skin, eggs, butter margarine, pastries and meat. Be it pork or beef they have a lot of cholesterol LDL goal of less than 130 and triglyceride of less than 150 (3) Blood pressure elevated without history of HTN: Code(s): R03.0 - Elevated blood-pressure reading, without diagnosis of hypertension Plan: Continue to monitor blood pressure at home low-salt diet (4) HTN (hypertension): Code(s): I10 - Essential (primary) hypertension Plan: Started on lisinopril hydrochlorothiazide once a day. Discussed about blood work (5) Corneal abrasion: Code(s): S05.00XA - Injury of conjunctiva and corneal abrasion without foreign body, unspecified eye, initial encounter Plan: Referral to Ophthalmology done Orders: Orders Complete Blood Count Auto Diff Today E78.00 - Pure hypercholesterolemia, unspecified Vitamin B12 and Folate Today E78.00 - Pure hypercholesterolemia, unspecified Lipid Panel Today E78.00 - Pure hypercholesterolemia, unspecified Prostate Specific Antigen Scr Today E78.00 - Pure hypercholesterolemia, unspecified Vitamin D 25-OH Total Today I10 - Essential (primary) hypertension Comprehensive Met. Panel Today E78.00 - Pure hypercholesterolemia, unspecified Free T4 (Free Thyroxine) Today E78.00 - Pure hypercholesterolemia, unspecified Thyroid Stimulating Hormone Today E78.00 - Pure hypercholesterolemia, unspecified Referrals Ophthalmology Referral S05.00XA - Injury of conjunctiva and corneal abrasion without foreign body, unspecified eye, initial encounter Medications: New lisinopril-hydrochlorothiazide 10-12.5 mg 1 tab PO DAILY 30 tabs 2RF I10 - Essential (primary) hypertension Coding Level of Care Code Est Pt Level 4 (28622) Diagnoses Gastroesophageal reflux disease without esophagitis K21.9 Esophagitis presence: without esophagitis Hypercholesterolemia E78.00 Blood pressure elevated without history of HTN R03.0 HTN (hypertension) I10 Corneal abrasion S05.00XA
[2023-08-28 12:59] VITALS: BP 170/90
== END 2023-08-28 13:06 | disposition home or self-care (01) ==
PROVIDERS: PCP Internal Medicine; Visit Provider Internal Medicine
DX: K21.9 Gastro-esophageal reflux disease without esophagitis (principal); E78.00 Pure hypercholesterolemia, unspecified; R03.0 Elevated blood-pressure reading, without diagnosis of hypertension; I10 Essential (primary) hypertension; S05.00XA Injury of conjunctiva and corneal abrasion without foreign body, unspecified eye, initial encounter
CPT/HCPCS: 99214

== ENCOUNTER 2023-10-02 06:26 | Outpatient (REF) | payer OTHER, SELFPAY ==
[2023-10-02 06:36] LABS: MANUAL DIFF FLAG NO
[2023-10-02 07:12] LABS: Basophils Absolute Auto 0.1 X10*3/uL (0.0-0.2); Basophils Percent Auto 0.6 % (0-2); Eosinophils Absolute Auto 0.4 X10*3/uL (0.0-0.4); Eosinophils Percent Auto 5.3 % (0-4); Hematocrit 47.2 % (42.0-52.0); Hemoglobin 15.9 g/dl (14.0-18.0); Imm Gran Abs Auto 0.03 X10*3/uL (0.00-0.03); Imm Gran Pct Auto 0.4 % (0.0-0.4); Lymphocytes Absolute Auto 2.1 X10*3/uL (1.2-4.9); Lymphocytes Percent Auto 26.8 % (20-40); Mean Corpuscular HGB Conc 33.7 g/dl (31.0-36.0); Mean Corpuscular Hemoglobin 29.5 pg (27.0-33.0); Mean Corpuscular Volume 87.6 fL (80.0-98.0); Mean Platelet Volume 10.3 fL (9.4-12.4); Monocytes Absolute Auto 0.8 X10*3/uL (0.1-1.2); Monocytes Percent Auto 9.6 % (2-11); Neutrophils Absolute Auto 4.5 x10*3/uL (2.0-8.3); Neutrophils Percent Auto 57.3 % (45-73); Platelet Count 310 X10*3/uL (160-400); Red Blood Count 5.39 X10*6/uL (4.60-5.80); White Blood Count 7.9 X10*3/uL (4.8-10.8)
[2023-10-02 07:44] LABS: Alanine Aminotransferase 26 U/L (0-40); Albumin Level 4.6 g/dL (3.5-5.0); Alkaline Phosphatase 71 U/L (39-117); Anion Gap 11 (12-20); Aspartate Amino Transferase 21 U/L (5-37); Bilirubin Total 0.6 mg/dL (0.0-1.0); Blood Urea Nitrogen 16 mg/dL (9-16); Calcium 9.8 mg/dL (8.4-10.2); Carbon Dioxide 30 mmol/L (22-29); Chloride 100 mmol/L (96-108); Cholesterol 204 mg/dL (<200); Estimated Glomerular Filt Rate > 60; Glucose Random 101 mg/dL (60-115); HDL Cholesterol 48 mg/dL (>40); LDL Cholesterol Calculated 143 mg/dL (<100); Potassium 3.5 mmol/L (3.3-5.1); Sodium 137 mmol/L (135-145); Total Protein 7.6 g/dL (6.5-8.0); Triglycerides 66 mg/dL (<150)
[2023-10-02 07:50] LABS: Free T4 (Free Thyroxine) 0.93 ng/dL (0.71-1.85); Thyroid Stimulating Hormone 1.68 uIU/mL (0.32-4.0); Vitamin D 25-OH Total 15.3 ng/mL (>30)
[2023-10-02 07:57] LABS: Prostate Specific Antigen Scr 2.89 ng/mL (<0.05-4.0); Vitamin B12 500 pg/mL (200-900)
== END 2023-10-02 06:27 | disposition home or self-care (01) ==
LOC: HO.LAB 06:26
PROVIDERS: PCP Internal Medicine; Visit Provider Internal Medicine
DX: Z12.5 Encounter for screening for malignant neoplasm of prostate (principal); E78.00 Pure hypercholesterolemia, unspecified; I10 Essential (primary) hypertension
CPT/HCPCS: 36415; 80053; 80061; 82306; 82607; 82746; 84153; 84439; 84443; 85025

== ENCOUNTER 2023-10-13 15:47 | Outpatient (AMB) | payer OTHER, SELFPAY ==
[2023-10-13 15:50] VITALS: BP 130/84; PULSE 69; O2SAT 99; BMI 27.6
--- NOTE | 2023-10-13 15:50 | A.OFFPC_ITS ---
Vital Signs 10/13/23 15:50 Height 5 ft 6 in Weight 171 lb 0.8 oz BMI 27.6 BP 130/84 Blood Pressure Location Lt brachial Position Sitting Pulse 69 Pulse Source Pulse Oximeter Pulse Oximetry (%) 99 Oxygen Delivery Method Room Air Intake Visit Reasons: Annual Exam Intake Note: Patient is here today for a physical. Neurology Physician Assistant Required: No Allergies penicillin G Allergy (Mild, Verified 10/13/23 15:50) rash latex [LATEX] Allergy (Unknown, Verified 10/13/23 15:50) RASH penicillin V Allergy (Unknown, Verified 10/13/23 15:50) rash Penicillins [PENICILLINS] Allergy (Unknown, Verified 10/13/23 15:50) HIVES Medication List - Last Reconciled 10/13/23 by Agustin Beauchamp MD betamethasone dipropionate 0.05% appl topical calcipotriene 0.005% appl topical BID lisinopril 10 mg PO DAILY metronidazole 0.75% appl topical PRN Tobacco use date assessed: 10/13/23 HPI Annual Exam HPI Details 57-year-old overweight male with GERD hy percholesterolemia hypertension last seen in August 2023 and here for physical exam. Noted to have an elevated blood pressure before. Colonoscopy is up-to-date January 2019 and due for this year. PAtient brought his machine . chest pressure sleeping , patient walks, occ sob, PFSH Medical History (Updated 10/13/23 @ 16:36 by Agustin Beauchamp MD) HTN (hypertension) Yeast infection of the skin Vitamin D deficiency Hypercholesterolemia GERD (gastroesophageal reflux disease) Surgical History History of removal of cyst Family History Father Colon cancer Hypercholesteremia Mother Osteoporosis Thyroid disease Past heart attack Paternal Grandfather Myocardial infarction Brother In good health Brother In good health Social History (Updated 10/13/23 @ 16:31 by Agustin Beauchamp MD) Housing: Apartment Alcohol intake: former Comment: 2022 Patient Tobacco Use Status: Never used Tobacco e-Cigarette/Vaping Use: Never Used Second Hand Smoke Exposure: No Current occupational status: employed Cognitive needs: No Hearing needs: No Vision needs: Yes Questionnaire PHQ-9 Over the last 2 weeks, how often have you been bothered by any of the following problems? 1. Little interest or pleasure in doing things: not at all 2. Feeling down, depressed, or hopeless: not at all 3. Trouble falling or staying asleep, or sleeping too much: not at all 4. Feeling tired or having little energy: not at all 5. Poor appetite or overeating: not at all 6. Feeling bad about yourself - or that you are a failure or have let yourself or your family down: not at all 7. Trouble concentrating on things, such as reading the newspaper or watching television: not at all 8. Moving or speaking so slowly that other people could have noticed. Or the opposite - being so fidgety or restless that you have been moving around a lot more than usual: not at all 9. Thoughts that you would be better off or of hurting yourself in some way: not at all Total score: 0 Depression Screening Interpretation: Negative Depression Screening Done: Yes Source: Developed by Drs. Kahlif Marie, Joycelyn Atkins, Germán Palomino and colleagues, with an educational lorri from [employer] Thrive Questionnaire Date Thrive assessed: 10/13/23 I am a: Patient What is your living situation today?: I have a steady place to live Within the past 12 months, did the food you bought not last and you didn't have the money to get more?: Never true Within the past 12 months, did you worry whether your food would run out before you got money to buy more?: Never true Do you have trouble paying for medicines?: No Do you have trouble getting transportation to medical appointments?: No Do you have trouble paying your heating and electricity bill?: No Do you have trouble taking care of your child, family member or friend?: No Do you have trouble with day-to-day activities such as bathing, preparing meals, shopping, managing finances, etc.?: No Are you currently unemployed and looking for a job?: No Are you interested in more education?: No Please select the resources that you would like help with: None THRIVE Score: 0 AUDIT C Alcohol Use Questionnaire (AUDIT-C) 1. How often do you have a drink containing alcohol?: Monthly or less 2. How many drinks containing alcohol do you have on a typical day when you are drinking?: 1 or 2 3. How often do you have six or more drinks on one occasion?: Never Total Score: 1 Score Reviewed/Action Taken: No GUANAKITO-7 AMB Questionnaire GUANAKITO-7 Date GUANAKITO - 7 assessed: 10/13/23 Feeling nervous, anxious, or on edge: 0 = Not at all Not being able to stop or control worryin = Not at all Worrying too much about different things: 0 = Not at all Trouble relaxin = Not at all Being so restless that it is hard to sit still: 0 = Not at all Becoming easily annoyed or irritable: 0 = Not at all Feeling afraid as if something awful might happen: 0 = Not at all Total GUANAKITO-7 score (0-4 normal; 5-9 mild; 10-14 moderate; 15-21 severe): 0 Source: Developed by Drs. Khalif Marie, Joycelyn Atkins, Germán Palomino and colleagues, with an educational lorri from [employer] Review of Systems Const Denies poor appetite and Denies weakness Eyes Denies no additional complaints ENT Reports Normal hearing present, Denies dizziness, Denies nasal congestion, Denies tinnitus and Denies sore throat Card Denies chest pain, Denies syncope, Denies rapid heart rate and Denies dyspnea Resp Denies cough and Denies dyspnea GI Denies change in stool character, Reports constipation, Denies diarrhea, Denies nausea and Denies vomiting Denies dysuria and Denies urinary frequency Neuro Reports Normal hearing present, Denies confusion, Denies dizziness, Denies syncope and Denies weakness Psych Denies confusion Physical exam (Primary Care) Vital Signs: Last Vital Signs Pulse 69 10/13/23 15:50 BP 130/84 10/13/23 15:50 Pulse Ox 99 10/13/23 15:50 Oxygen Delivery Method Room Air 10/13/23 15:50 BMI result Body Mass Index 27.6 Tobacco/Smoking Status: Tobacco use Status Tobacco use date assessed 10/13/23 10/13/23 15:51 Patient Tobacco Use Status Never used Tobacco 10/13/23 15:51 e-Cigarette/Vaping Use Never Used 10/13/23 15:51 PHQ-9: PHQ-9 Score PHQ-9: Total score 0 10/13/23 16:09 Depression Screening Interpretation: Negative Thrive Assessment: Date of Thrive Assessment Date Thrive assessed 10/13/23 10/13/23 16:09 Const General: No confusion Orientation/consciousness: No confusion HENMT Head: Yes normocephalic Ears: external ears normal and TM's normal bilaterally Face and sinus: Yes normal facial exam Mouth: moist mucous membranes Throat: Yes tonsils normal Eyes Conjunctivae: conjunctivae normal Pupils: Equal, round and reactive pupils present and Pupil accommodation reflex normal Direct Ophthalmoscopy: normal light reflex Neck Neck: No lymphadenopathy Thyroid: Thyroid normal Chest Chest palpation & inspection: normal inspection of the chest Resp Effort & Inspection: normal respiratory effort and no audible wheezes Auscultation: clear to auscultation bilaterally, no crackles, no wheezes and lung sounds not diminished Cardio Rate: regular rate Rhythm: regular rhythm Peripheral pulses: radial pulses present and dorsalis pedis present GI Other: colon test referral done Palpation (GI): no masses Auscultation: normal bowel sounds and normoactive bowel sounds Rectal Exam - Male: Yes deferred Male General Exam: Yes normal external exam Skin General skin exam: no rashes or lesions noted Rashes: no rashes Neuro General: No confusion Cranial nerves: Yes Equal, round and reactive pupils present and Yes Normal hearing present Cognition (Neuro): normal cognition Gait exam (Neuro): Normal gait present Motor exam (neuro): 5/5 motor strength present throughout Deep tendon reflexes (DTR's): Right brachioradialis reflex intensity grade: 2+, Left brachioradialis reflex intensity grade: 2+, Right patellar reflex intensity grade: 2+ and Left patellar reflex intensity grade: 2+ Extrem General: No edema Assessment and Plan Assessment & Plan (1) Annual physical exam: Code(s): Z00.00 - Encounter for general adult medical examination without abnormal findings (2) HTN (hypertension): Code(s): I10 - Essential (primary) hypertension Plan: Continue with blood pressure medication. Decrease salt intake and exercise patient on lisinopril hydrochlorothiazide once a day concern that the blood pressure has been low on his machine to below 110 systolic and so advised to take out the hydrochlorothiazide and just to take the lisinopril. Continue to monitor blood pressure (3) GERD (gastroesophageal reflux disease): Code(s): K21.9 - Gastro-esophageal reflux disease without esophagitis Qualifiers: Esophagitis presence: without esophagitis Qualified Code(s): K21.9 - Gastro-esophageal reflux disease without esophagitis Plan: Avoid the foods that causes that usually spicy foods, tomato products, juices, coffee, soda and foods that your sensitive to. After eating do not lie down, allow 3-4 hours before in lie down. And keep the head of bed above 30 degrees to avoid the acid from going up. (4) Hypercholesterolemia: Code(s): E78.00 - Pure hypercholesterolemia, unspecified Plan: Avoid fried foods, chicken skin, eggs, butter margarine, pastries and meat. Be it pork or beef they have a lot of cholesterol LDL goal of less than 130 and triglyceride of less than 150. (5) Vitamin D deficiency: Code(s): E55.9 - Vitamin D deficiency, unspecified Plan: Vitamin-D 7460-6253 units once a day (6) Tubular adenoma of colon: Comment: Tubular adenoma 2019 Code(s): D12.6 - Benign neoplasm of colon, unspecified Plan: Patient is reminded about colonoscopy (7) Chest pain: Code(s): R07.9 - Chest pain, unspecified Orders: Orders CA stress test Today R07.9 - Chest pain, unspecified Hemoglobin A1c 3 Months E78.00 - Pure hypercholesterolemia, unspecified Lipid Panel 3 Months E78.00 - Pure hypercholesterolemia, unspecified Comprehensive Met. Panel 3 Months E78.00 - Pure hypercholesterolemia, unspecified Referrals Gastroenterology Referral D12.6 - Benign neoplasm of colon, unspecified Medications: New lisinopril 10 mg PO DAILY 90 tabs 2RF I10 - Essential (primary) hypertension Discontinued lisinopril-hydrochlorothiazide 10-12.5 mg Discontinued Reason: Doctor's Order 1 tab PO DAILY 30 tabs 2RF I10 - Essential (primary) hypertension Coding Level of Care Code Est Pt Prev Care 40-64y(14042) Diagnoses Annual physical exam Z00.00 HTN (hypertension) I10 Gastroesophageal reflux disease without esophagitis K21.9 Esophagitis presence: without esophagitis Hypercholesterolemia E78.00 Vitamin D deficiency E55.9 Tubular adenoma of colon D12.6 Chest pain R07.9
== END 2023-10-13 16:50 | disposition home or self-care (01) ==
PROVIDERS: Visit Provider Internal Medicine
DX: Z00.00 Encounter for general adult medical examination without abnormal findings (principal); I10 Essential (primary) hypertension; K21.9 Gastro-esophageal reflux disease without esophagitis; E78.00 Pure hypercholesterolemia, unspecified; E55.9 Vitamin D deficiency, unspecified; D12.6 Benign neoplasm of colon, unspecified; R07.9 Chest pain, unspecified
CPT/HCPCS: 99396

== ENCOUNTER → 2023-10-23 07:40 | Outpatient (REF) | payer OTHER, SELFPAY ==
--- NOTE | 2023-10-23 07:42 | CA_ITS ---
Acquisition Time: 2023-10-23 09:29:04 Total Exercise Time: 00:07:39 Test Indications: cp, sob Medications: see h Protocol: USMAN Max HR: 164 BPM 101% of Pred: 162 BPM Max BP: 162/082 mmHG Max Work Load: 9.5 METS Exercise stress test exercise 7 min 39 sec of Usman protocol achieving 101% MPHR, with mild SOB, 4/10 left sided pinching in chest, with isolated PVCs, with normotensive response to exercise, with scooping lead V6. Chest discomfort resolved with rest. Test reviewed with Dr. Salgado. Referred By: Agustin Beauchamp Overread By: Hayley Aldrich
== END ==
LOC: HO.CARD 07:40
PROVIDERS: PCP Internal Medicine; Visit Provider Internal Medicine
DX: R07.9 Chest pain, unspecified (principal)
CPT/HCPCS: 93017

== ENCOUNTER → 2023-10-23 07:42 | Outpatient (BNV) | payer OTHER, SELFPAY | PROVIDERS: PCP Internal Medicine; Visit Provider Nurse Practitioner | DX: R07.89 Other chest pain (principal); R06.02 Shortness of breath | CPT/HCPCS: 93016; 93018 ==

== ENCOUNTER 2023-12-31 06:18 | Outpatient (REF) | payer OTHER, SELFPAY ==
[2023-12-31 08:05] LABS: Estimated Average Glucose 100 mg/dL; Hemoglobin A1c % 5.1 % (<6.0)
[2023-12-31 08:50] LABS: Alanine Aminotransferase 15 U/L (0-40); Albumin Level 4.5 g/dL (3.5-5.0); Alkaline Phosphatase 60 U/L (39-117); Anion Gap 16 (12-20); Aspartate Amino Transferase 17 U/L (5-37); Bilirubin Total 0.7 mg/dL (0.0-1.0); Blood Urea Nitrogen 17 mg/dL (9-16); Calcium 9.6 mg/dL (8.4-10.2); Carbon Dioxide 24 mmol/L (22-29); Chloride 103 mmol/L (96-108); Cholesterol 169 mg/dL (<200); Estimated Glomerular Filt Rate > 60; Glucose Random 82 mg/dL (60-115); HDL Cholesterol 44 mg/dL (>40); LDL Cholesterol Calculated 110 mg/dL (<100); Potassium 3.7 mmol/L (3.3-5.1); Sodium 139 mmol/L (135-145); Total Protein 7.5 g/dL (6.5-8.0); Triglycerides 79 mg/dL (<150)
== END 2023-12-31 06:19 | disposition home or self-care (01) ==
LOC: HO.LAB 06:18
PROVIDERS: PCP Internal Medicine; Visit Provider Internal Medicine
DX: E78.00 Pure hypercholesterolemia, unspecified (principal)
CPT/HCPCS: 36415; 80053; 80061; 83036

== ENCOUNTER 2024-01-22 15:37 | Outpatient (AMB) | payer OTHER, SELFPAY ==
[2024-01-22 15:52] VITALS: BP 110/62; PULSE 62; O2SAT 97; BMI 27.6
--- NOTE | 2024-01-22 15:52 | MHC.PC.OV ---
Vital Signs 01/22/24 15:52 Height 5 ft 6 in Weight 171 lb BMI 27.6 BP 110/62 Blood Pressure Location Lt brachial Position Sitting Pulse 62 Pulse Source Pulse Oximeter Pulse Oximetry (%) 97 Oxygen Delivery Method Room Air Intake Visit Reasons: 3 MONTH Materials Associate: Not Required per policy Accompanied by: Self / Same As Patient Allergies penicillin G Allergy (Mild, Verified 01/22/24 15:52) rash latex [LATEX] Allergy (Unknown, Verified 01/22/24 15:52) RASH penicillin V Allergy (Unknown, Verified 01/22/24 15:52) rash Penicillins [PENICILLINS] Allergy (Unknown, Verified 01/22/24 15:52) HIVES Tobacco use date assessed: 10/13/23 Dental Screening Dental Screen Date: 01/22/24 Did you have a dental visit in the last 12 months?: Yes Did you have a dental problem in the last 6 months where you did not have access to dental care?: No Was dental information given to patient?: Patient has dentist HPI 3 MONTH HPI Details 58-year-old overweight male with hypertension GERD hypercholesterolemia coming in for follow-up. September last seen for physical exam colonoscopy reminded. Patient complained of chest pain the last time and stress test done 11/05/2023 [facility] Medical History (Updated 10/13/23 @ 16:36 by Agustin Beauchamp MD) HTN (hypertension) Yeast infection of the skin Vitamin D deficiency Hypercholesterolemia GERD (gastroesophageal reflux disease) Surgical History History of removal of cyst Family History Father Colon cancer Hypercholesteremia Mother Osteoporosis Thyroid disease Past heart attack Paternal Grandfather Myocardial infarction Brother In good health Brother In good health Social History (Updated 10/13/23 @ 16:31 by Agustin Beauchamp MD) Housing: Apartment Alcohol intake: former Comment: 2022 Patient Tobacco Use Status: Never used Tobacco e-Cigarette/Vaping Use: Never Used Second Hand Smoke Exposure: No Current occupational status: employed Cognitive needs: No Hearing needs: No Vision needs: Yes (glasses) Questionnaire Thrive Questionnaire Date Thrive assessed: 10/13/23 GUANAKITO-7 AMB Questionnaire GUANAKITO-7 Date GUANAKITO - 7 assessed: 10/13/23 Source: Developed by Drs. Khalif Marie, Joycelyn Atkins, Germán Palomino and colleagues, with an educational lorri from [employer]. Physical exam (Primary Care) Vital Signs: Last Vital Signs Pulse 62 01/22/24 15:52 BP 110/62 01/22/24 15:52 Pulse Ox 97 01/22/24 15:52 Oxygen Delivery Method Room Air 01/22/24 15:52 BMI result Body Mass Index 27.6 Tobacco/Smoking Status: Tobacco use Status Tobacco use date assessed 10/13/23 01/22/24 15:53 Patient Tobacco Use Status Never used Tobacco 01/22/24 15:53 e-Cigarette/Vaping Use Never Used 01/22/24 15:53 Thrive Assessment: Date of Thrive Assessment Date Thrive assessed 10/13/23 01/22/24 15:53 Const General: alert; No acute distress Eyes Conjunctivae: conjunctivae normal Resp Auscultation: clear to auscultation bilaterally Cardio Rate: regular rate Rhythm: regular rhythm GI Inspection: Yes normal to inspection Extrem General: Yes normal to inspection and No edema Assessment and Plan Assessment & Plan (1) GERD (gastroesophageal reflux disease): Code(s): K21.9 - Gastro-esophageal reflux disease without esophagitis Qualifiers: Esophagitis presence: without esophagitis Qualified Code(s): K21.9 - Gastro-esophageal reflux disease without esophagitis Plan: Avoid the foods that causes that usually spicy foods, tomato products, juices, coffee, soda and foods that your sensitive to. After eating do not lie down, allow 3-4 hours before in lie down. And keep the head of bed above 30 degrees to avoid the acid from going up. (2) Hypercholesterolemia: Code(s): E78.00 - Pure hypercholesterolemia, unspecified Plan: Avoid fried foods, chicken skin, eggs, butter margarine, pastries and meat. Be it pork or beef they have a lot of cholesterol LDL goal of less than 130 and triglyceride of less than 150 diet control test 10/07/2023 (3) HTN (hypertension): Code(s): I10 - Essential (primary) hypertension Plan: Continue with blood pressure medication. Decrease salt intake and exercise on lisinopril 10 mg once a day (4) Tubular adenoma of colon: Comment: Tubular adenoma 2019 Code(s): D12.6 - Benign neoplasm of colon, unspecified Plan: Patient is reminded about colonoscopy this month Coding Level of Care Code Est Pt Level 4 (84677) Diagnoses Gastroesophageal reflux disease without esophagitis K21.9 Esophagitis presence: without esophagitis Hypercholesterolemia E78.00 HTN (hypertension) I10 Tubular adenoma of colon D12.6
== END 2024-01-22 17:25 | disposition home or self-care (01) ==
PROVIDERS: PCP Internal Medicine; Visit Provider Internal Medicine
DX: K21.9 Gastro-esophageal reflux disease without esophagitis (principal); E78.00 Pure hypercholesterolemia, unspecified; I10 Essential (primary) hypertension; D12.6 Benign neoplasm of colon, unspecified
CPT/HCPCS: 99214

== ENCOUNTER 2024-02-09 08:40 | Outpatient (AMB) | payer OTHER, SELFPAY ==
[2024-02-09 09:17] VITALS: BP 122/70; PULSE 67; TEMP 37; O2SAT 96; BMI 27.6
--- NOTE | 2024-02-09 09:17 | AM.OFFWIN_ITS ---
Intake Vital Signs 02/09/24 09:17 Height 5 ft 6 in Weight 171 lb BMI 27.6 BP 122/70 Blood Pressure Location Rt brachial Position Sitting Pulse 67 Pulse Source Pulse Oximeter Temp 98.6 F Temp Source Oral Pulse Oximetry (%) 96 Intake Visit Reasons: EP Sore throat, congestion Intake Note: pt is here for sore throat with congestion Patient Tobacco Use Status: Never used Tobacco Allergies penicillin G Allergy (Mild, Verified 02/09/24 09:17) rash latex [LATEX] Allergy (Unknown, Verified 02/09/24 09:17) RASH penicillin V Allergy (Unknown, Verified 02/09/24 09:17) rash Penicillins [PENICILLINS] Allergy (Unknown, Verified 02/09/24 09:17) HIVES Do you need a note to return to daycare/school/sports/work: No HPI HPI Comments History of Present Illness Details 58 y/o male patient who presents to walk in clinic with c/o Acute Sinusitis since last week . Denies fevers but does endorse chills. [facility] Medical History (Updated 10/13/23 @ 16:36 by Agustin Beauchamp MD) HTN (hypertension) Yeast infection of the skin Vitamin D deficiency Hypercholesterolemia GERD (gastroesophageal reflux disease) Surgical History History of removal of cyst Family History Father Colon cancer Hypercholesteremia Mother Osteoporosis Thyroid disease Past heart attack Paternal Grandfather Myocardial infarction Brother In good health Brother In good health Social History (Updated 10/13/23 @ 16:31 by Agustin Beauchamp MD) Housing: Apartment Alcohol intake: former Comment: 2022 Patient Tobacco Use Status: Never used Tobacco e-Cigarette/Vaping Use: Never Used Second Hand Smoke Exposure: No Current occupational status: employed Cognitive needs: No Hearing needs: No Vision needs: Yes (glasses) Review of Systems Const All systems reviewed & are unremarkable except as noted in HPI and below Physical Exam Vital Signs: Last Vital Signs Temp 98.6 F 02/09/24 09:17 Pulse 67 02/09/24 09:17 BP 122/70 02/09/24 09:17 Pulse Ox 96 02/09/24 09:17 BMI result Body Mass Index 27.6 Const General: comfortable and no acute distress Nutritional Appearance: obese Orientation/consciousness: patient oriented x3 HEENT Head: Yes normocephalic Ears: external ears normal and TM's normal bilaterally General nose exam: Abnormal mucous membranes and turbinates present boggy and erythematous Face and sinus: Yes sinuses nontender Mouth: moist mucous membranes Throat: Yes posterior oropharynx normal Resp Effort & Inspection: normal respiratory effort and able to speak in complete sentences Auscultation: clear to auscultation bilaterally, no crackles, no rales, no rhonchi and no wheezes Cardio Rate: regular rate Rhythm: regular rhythm Neuro General: patient oriented x3, gait normal and moves all extremities Psych Speech and movement: Normal speech and movement present Assessment & Plan Assessment & Plan (1) Acute rhinosinusitis: Code(s): J01.90 - Acute sinusitis, unspecified Plan: Prescribed Abx Acetaminophen for pain Allergra or Zrytec Daily. Medications: New doxycycline hyclate 100 mg PO BID 20 caps 0RF 10 days J01.90 - Acute sinusitis, unspecified Coding Level of Care Code Est Pt Level 3 (58183) Diagnoses Acute rhinosinusitis J01.90 Time Spent (min) 15
== END 2024-02-09 09:52 | disposition home or self-care (01) ==
PROVIDERS: PCP Internal Medicine; Visit Provider Nurse Practitioner Family
DX: J01.90 Acute sinusitis, unspecified (principal)
CPT/HCPCS: 87880; 99213

== ENCOUNTER 2024-03-04 09:24 | Outpatient (AMB) | payer BC, SELFPAY ==
--- NOTE | 2024-03-04 09:26 | AM.OFFWIN_ITS ---
Intake Vital Signs 03/04/24 09:27 Height 5 ft 6 in Weight 174 lb BMI 28.1 BP 118/82 Blood Pressure Location Lt brachial Position Sitting Pulse 79 Pulse Source Pulse Oximeter Temp 98.5 F Temp Source Oral Pulse Oximetry (%) 98 Oxygen Delivery Method Room Air Intake Visit Reasons: EP Cough, itchy throat Intake Note: pt is here c/o cough and itchy throat. Started 1 week ago. Patient Tobacco Use Status: Never used Tobacco Allergies penicillin G Allergy (Mild, Verified 03/04/24 09:27) rash latex [LATEX] Allergy (Unknown, Verified 03/04/24 09:) RASH penicillin V Allergy (Unknown, Verified 03/04/24 09:) rash Penicillins [PENICILLINS] Allergy (Unknown, Verified 03/04/24 09:) HIVES Do you need a note to return to daycare/school/sports/work: No HPI EP Cough, itchy throat HPI Details This note is constructed using voice recognition software. While every effort has been made to ensure accuracy, building maintenance worker errors may have been included. The patient is a 58 year old male who presents to the clinic today with 1 week history of cough and itchy throat. He denies fever, chills, dyspnea. He does note that the cough and congestion feeling are worse in the morning when he wakes up, he clears his throat and coughs and it gets better. He finds the area to be slightly itchy, but no pain. He has taken Coricidin HBP for the cough, but that seems not to have improve the symptoms. [facility] Medical History (Updated 10/13/23 @ 16:36 by Agustin Beauchamp MD) HTN (hypertension) Yeast infection of the skin Vitamin D deficiency Hypercholesterolemia GERD (gastroesophageal reflux disease) Surgical History History of removal of cyst Family History Father Colon cancer Hypercholesteremia Mother Osteoporosis Thyroid disease Past heart attack Paternal Grandfather Myocardial infarction Brother In good health Brother In good health Social History (Updated 10/13/23 @ 16:31 by Agustin Beauchamp MD) Housing: Apartment Alcohol intake: former Comment: 2022 Patient Tobacco Use Status: Never used Tobacco e-Cigarette/Vaping Use: Never Used Second Hand Smoke Exposure: No Current occupational status: employed Cognitive needs: No Hearing needs: No Vision needs: Yes (glasses) Review of Systems Const All systems reviewed & are unremarkable except as noted in HPI and below Physical Exam Vital Signs: Last Vital Signs Temp 98.5 F 03/04/24 09:27 Pulse 79 03/04/24 09:27 BP 118/82 03/04/24 09:27 Pulse Ox 98 03/04/24 09:27 Oxygen Delivery Method Room Air 03/04/24 09:27 BMI result Body Mass Index 28.1 Const General: cooperative, healthy appearing, comfortable, no acute distress and alert Orientation/consciousness: patient oriented x3 Limitations: no limitations HEENT Head: Yes normal to inspection and Yes normocephalic Ears: hearing grossly normal bilaterally General nose exam: Normal external nose present, Abnormal mucous membranes and turbinates present erythematous bilateral and Nasal discharge present clear bilateral Face and sinus: Yes normal facial exam and Yes sinuses nontender Mouth: Normal oral and palatal mucosa present, tongue normal and no muffled voice Teeth and gingiva: dentition normal Throat: Yes posterior oropharynx normal, Yes postnasal drainage and Yes cobblestoning Eyes General: appearance normal, both eyes and all related structures Neck Neck: Yes normal visual inspection, Yes full ROM and Yes no lymphadenopathy Resp Effort & Inspection: normal respiratory effort and able to speak in complete sentences Auscultation: clear to auscultation bilaterally Cardio Jugular venous distension: no JVD Palpation: normal PMI Rate: regular rate Heart sounds: S1 normal heart sound present, S2 normal heart sound present, no click, no gallops, no murmurs and no rubs Skin General skin exam: no rashes or lesions noted, elasticity normal and turgor normal Neuro General: patient oriented x3 Psych Appearance: grossly normal Mental Status: mental status grossly normal Speech and movement: Normal speech and movement present Affect: normal affect Assessment & Plan Assessment & Plan (1) Allergic rhinitis: Code(s): J30.9 - Allergic rhinitis, unspecified Qualifiers: Allergic rhinitis trigger: pollen Allergic rhinitis seasonality: seasonal Qualified Code(s): J30.1 - Allergic rhinitis due to pollen Plan: History and physical examination reassuring today. Advised supportive measures including hydration, humidification, nasal saline sinus rinse. Advised [id number] Flonase, patient requested prescription sent, Rx sent to requested pharmacy. Testing not obtained based on physical examination, no concern for strep given not meeting flea criteria. Advised follow up worsening or failure to resolve. Plan See above for full details and plan. Medications: New fluticasone propionate 50 mcg/actuation (Children's Flonase Allergy Relief) administer into each nostril 1 spray intranasal BID PRN 16 grams 0RF allergy symptoms Coding Level of Care Code Est Pt Level 3 (50665) Diagnoses Seasonal allergic rhinitis due to pollen J30.1 Allergic rhinitis trigger: pollen Allergic rhinitis seasonality: seasonal
[2024-03-04 09:27] VITALS: BP 118/82; PULSE 79; TEMP 36.9; O2SAT 98; BMI 28.1
== END 2024-03-04 10:26 | disposition home or self-care (01) ==
PROVIDERS: PCP Internal Medicine; Visit Provider Registered Nurse
DX: J30.1 Allergic rhinitis due to pollen (principal)
CPT/HCPCS: 99213

== ENCOUNTER 2024-04-28 06:38 | Emergency (ER) | payer BC, SELFPAY ==
--- NOTE | ~2024-04-28 | CT_ITS ---
EXAMINATION: CT ABDOMEN AND PELVIS WITH CONTRAST CLINICAL INFORMATION: Right sided abdominal pain. COMPARISON: None available. TECHNIQUE: Multidetector volumetric images were obtained from the superior aspect of the liver through the pubic symphysis following administration 85 mL of Omnipaque 350 intravenous contrast. Sagittal and coronal reformatted images were obtained on the technologist's workstation. Oral contrast: No This CT examination was performed using dose optimization techniques as appropriate, variously including the following: *Automated exposure control *Adjustment of mA and/or kV according to patient size (this includes techniques or standardized protocols for targeted exams where dose is matched to indication/reason for exam; i.e. extremities or head) *Use of iterative reconstruction technique DLP: 382 mGy-cm FINDINGS: LUNG BASES: Small right pleural effusion and right basilar atelectasis. Small hiatal hernia. LIVER, GALLBLADDER, AND BILIARY TREE: The liver is normal in size and contour. No focal hepatic lesion or biliary ductal dilatation is present. The gallbladder is unremarkable with no evidence of radiopaque gallstones, gallbladder wall thickening, or obvious pericholecystic inflammatory changes. PANCREAS: No ductal dilatation. SPLEEN: Not enlarged. ADRENAL GLANDS: No adrenal mass. KIDNEYS AND URETERS: The kidneys are symmetric in size and enhancement. Possible 2 mm nonobstructing calculus upper pole right kidney. No hydronephrosis. No perinephric stranding. BLADDER: Underdistended. GASTROINTESTINAL TRACT:. Small and large bowel loops are normal caliber. No small bowel obstruction. Appendix is within normal limits. ABDOMINAL WALL: No significant hernia is appreciated. LYMPH NODES: No bulky lymphadenopathy. VASCULAR: Normal caliber abdominal aorta. PELVIC VISCERA: Enlarged prostate gland. OSSEOUS STRUCTURES: No destructive bone lesions. CT/CT abdomen pelvis w IV con IMPRESSION: Small right pleural effusion and right basilar atelectasis. Electronically signed by: Patrick Quijano MD 04/28/2024 11:48 AM EDT
[2024-04-28 06:45] VITALS: BP 138/81; PULSE 80; RESP 18; TEMP 36.6; O2SAT 97; BMI 28.7
[2024-04-28 07:04] LABS: MANUAL DIFF FLAG NO
[2024-04-28 07:05] LABS: Basophils Percent Auto 0.4 % (0-2); Eosinophils Absolute Auto 0.3 X10*3/uL (0.0-0.4); Eosinophils Percent Auto 2.7 % (0-4); Hematocrit 43.6 % (42.0-52.0); Hemoglobin 14.8 g/dl (14.0-18.0); Imm Gran Abs Auto 0.07 X10*3/uL (0.00-0.03); Imm Gran Pct Auto 0.6 % (0.0-0.4); Lymphocytes Absolute Auto 1.4 X10*3/uL (1.2-4.9); Lymphocytes Percent Auto 12.3 % (20-40); Mean Corpuscular HGB Conc 33.9 g/dl (31.0-36.0); Mean Corpuscular Hemoglobin 30.3 pg (27.0-33.0); Mean Corpuscular Volume 89.3 fL (80.0-98.0); Mean Platelet Volume 10.3 fL (9.4-12.4); Monocytes Absolute Auto 1.4 X10*3/uL (0.1-1.2); Monocytes Percent Auto 12.3 % (2-11); Neutrophils Absolute Auto 8.2 x10*3/uL (2.0-8.3); Neutrophils Percent Auto 71.7 % (45-73); Platelet Count 281 X10*3/uL (160-400); Red Blood Count 4.88 X10*6/uL (4.60-5.80); Red Cell Distribution Width 13.1 % (11.0-16.0); White Blood Count 11.4 X10*3/uL (4.8-10.8)
[2024-04-28 07:26] LABS: Alanine Aminotransferase 18 U/L (0-40); Albumin Level 4.3 g/dL (3.5-5.0); Alkaline Phosphatase 64 U/L (39-117); Anion Gap 13 (12-20); Aspartate Amino Transferase 16 U/L (5-37); Bilirubin Total 0.7 mg/dL (0.0-1.0); Blood Urea Nitrogen 15 mg/dL (9-16); Carbon Dioxide 25 mmol/L (22-29); Chloride 104 mmol/L (96-108); Creatinine Clr Calc Pharmacy 89.2; Estimated Glomerular Filt Rate > 60; Glucose Random 118 mg/dL (60-115); Lipase 23 U/L (8-78); Potassium 3.9 mmol/L (3.3-5.1); Sodium 138 mmol/L (135-145); Total Protein 7.5 g/dL (6.5-8.0)
[2024-04-28 09:23] LABS: Appearance Urine Clear; Color Urine Yellow; Glucose Urine UA Negative (Negative); Leukocyte Esterase Urine Negative (Negative); Nitrite Urine Negative (Negative); PH 7.5 (5.0-9.0); Specific Gravity - Urine <= 1.005 (1.005-1.025); Urine Blood Negative (Negative); Urine Ketones Negative (Negative); Urine Protein Negative (Neg-Trace)
[2024-04-28 09:25] LABS: Bacteria Urine None Seen (None Seen); Hyaline Casts Urine 0-2 /LPF (0-2); RBC Urine 0-2 /HPF (0-2); Squamous Epithelial Cell Urine 0-2 /HPF (0-2); WBC Urine 0-5 /HPF (0-5)
--- NOTE | 2024-04-28 09:42 | ED.ABDPAIN ---
HPI - Abdominal Pain General Chief Complaint: Abdominal Pain Stated Complaint: pain right side abdomen/ fever and chills Time Seen by Provider: 04/28/24 08:40 History of Present Illness HPI narrative: Patient is a 58-year-old male presents today with having right-sided abdominal pain. It is worse over the flank area. Not associated with any fever chills. Not associated with any chest pain shortness of breath. There was no coughing or congestion or upper respiratory symptoms. There is no nausea no vomiting no diarrhea. Does have a history of kidney stone. Patient denies any abdominal surgery. Not associated with food. No diaphoresis. Related Data Home Medications ?Medication ?Instructions ?Recorded ?Confirmed betamethasone dipropionate 0.05 % appl topical 04/15/23 10/13/23 topical cream calcipotriene 0.005 % topical cream appl topical BID 04/15/23 10/13/23 Previous Rx's ?Medication ?Instructions ?Recorded lisinopril 10 mg tablet 10 mg PO DAILY #90 tabs 10/13/23 fluticasone propionate 50 1 spray intranasal BID PRN allergy 03/04/24 mcg/actuation nasal symptoms #16 grams spray,suspension (Children's Flonase Allergy Relief) Allergies Allergy/AdvReac Type Severity Reaction Status Date / Time penicillin G Allergy Mild rash Verified 04/28/24 06:47 latex [LATEX] Allergy Unknown RASH Verified 04/28/24 06:47 penicillin V Allergy Unknown rash Verified 04/28/24 06:47 Penicillins [PENICILLINS] Allergy Unknown HIVES Verified 04/28/24 06:47 Review of Systems Review of Systems Positive abdominal pain on the right side Yes all other systems are reviewed and are negative [facility] Past Medical History Attestation statement: The following information was validated with the patient. Medical History HTN (hypertension) Yeast infection of the skin Vitamin D deficiency Hypercholesterolemia GERD (gastroesophageal reflux disease) Surgical History History of removal of cyst Family History Family History Father Colon cancer Hypercholesteremia Mother Osteoporosis Thyroid disease Past heart attack Paternal Grandfather Myocardial infarction Brother In good health Brother In good health Social History Social History (Updated 10/13/23 @ 16:31 by Agustin Beauchamp MD) Housing: Apartment Alcohol intake: former Comment: 2022 Patient Tobacco Use Status: Never used Tobacco e-Cigarette/Vaping Use: Never Used Second Hand Smoke Exposure: No Advance Directives: No Do you have a plan to hurt others: No Plan Current occupational status: employed Cognitive needs: No Hearing needs: No Vision needs: Yes (glasses) Physical Exam ED Vital Signs: Vital Signs - 24 hr 04/28/24 06:45 04/28/24 10:09 04/28/24 10:58 Temperature 97.9 F 98.4 F 97.8 F Pulse Rate 80 70 66 Respiratory Rate 18 16 16 Blood Pressure 138/81 103/81 124/85 Pulse Oximetry 97 99 98 Oxygen Delivery Method Room Air Room Air Room Air BMI result Body Mass Index 28.7 Appearance: Alert. Oriented X3. No acute distress. Eyes: Pupils equal, round and reactive to light. ENT: Pharynx normal. Neck: Normal inspection. Neck supple. No lymph nodes noted. No crepitus CVS: Normal heart rate and rhythm. Pulses normal. Normal S1 and S2 Respiratory: No respiratory distress. Breath sounds normal. No Wheezing. No rales Abdomen: Soft and nontender. No rigidity. No distention. good BS x4 Skin: Skin warm and dry. Normal skin color. Normal skin turgor. Extremities: No lower extremity edema. Neurovascular intact to all extremities. No Lacerations. No Rash Neuro: Oriented X 3. No motor deficit. No sensory deficit. Moving all extermities. No slurred speech Medical Decision Making Medical Decision Making MDM Narrative: Patient is a 58-year-old male presents today with having right flank pain for the last 4 days. There is no fever no chills no cough no congestion or upper respiratory symptoms. No urinary symptoms has a history of kidney stone. Patient's urine however showed no evidence of infection is no blood in the urine. A CT scan of the abdomen pelvis with IV contrast was done. There is no evidence of any biliary disease. There is no evidence for appendicitis is no evidence for kidney stone there is a very small pleural effusion noted. There is no evidence of pneumonia on the x-ray. Patient's O2 sat is normal. No respiratory symptoms. White count is 11. Patient's LFTs are normal. Urine showed no signs of infection. Vital signs okay. Discussed with patient the need for close follow-up for the very small pleural effusion patient states understanding. No acute need for admission here. No risk for PE. In stable condition Differential Diagnosis Differential Diagnoses: The differential diagnosis associated with the presentation includes Pleural effusion, kidney stone, biliary issue, appendicitis, pneumonia, PE, Admission/Observation Consideration of admission/observation: Escalation of care including admission/observation considered Lab Data MDM Lab Attestation statement: I reviewed the patient's lab results. 04/28/24 06:58 04/28/24 06:58 Labs: Lab Results 04/28/24 04/28/24 Range/Units 06:58 09:17 WBC 11.4 H (4.8-10.8) X10*3/uL RBC 4.88 (4.60-5.80) X10*6/uL Hgb 14.8 (14.0-18.0) g/dl Hct 43.6 (42.0-52.0) % MCV 89.3 (80.0-98.0) fL MCH 30.3 (27.0-33.0) pg MCHC 33.9 (31.0-36.0) g/dl RDW 13.1 (11.0-16.0) % Plt Count 281 (160-400) X10*3/uL MPV 10.3 (9.4-12.4) fL Immature Gran % (Auto) 0.6 H (0.0-0.4) % Neut % (Auto) 71.7 (45-73) % Lymph % (Auto) 12.3 L (20-40) % [place] % (Auto) 12.3 H (2-11) % Eos % (Auto) 2.7 (0-4) % Baso % (Auto) 0.4 (0-2) % Lymph # (Auto) 1.4 (1.2-4.9) X10*3/uL [place] # (Auto) 1.4 H (0.1-1.2) X10*3/uL Eos # (Auto) 0.3 (0.0-0.4) X10*3/uL Baso # (Auto) 0.0 (0.0-0.2) X10*3/uL Abs Immat Gran (auto) 0.07 H (0.00-0.03) X10*3/uL Absolute Neuts (auto) 8.2 (2.0-8.3) x10*3/uL Absolute Nucleated RBC 0.000 (0.0-0.012) X10*3/uL Nucleated RBC % (auto) 0.0 (0.0-0.2) /100WBC Sodium 138 (135-145) mmol/L Potassium 3.9 (3.3-5.1) mmol/L Chloride 104 (96-108) mmol/L Carbon Dioxide 25 (22-29) mmol/L Anion Gap 13 (12-20) BUN 15 (9-16) mg/dL Creatinine 0.89 (0.5-1.4) mg/dL Estim Creat Clear Calc 89.2 Estimated GFR > 60 Random Glucose 118 H (60-115) mg/dL Calcium 10.0 (8.4-10.2) mg/dL Total Bilirubin 0.7 (0.0-1.0) mg/dL AST 16 (5-37) U/L ALT 18 (0-40) U/L Alkaline Phosphatase 64 (39-117) U/L Total Protein 7.5 (6.5-8.0) g/dL Albumin 4.3 (3.5-5.0) g/dL Lipase 23 (8-78) U/L Urine Color Yellow Urine Appearance Clear Urine pH 7.5 (5.0-9.0) Ur Specific [place] <= 1.005 (1.005-1.025) Urine Protein Negative (Neg-Trace) mg/dL Urine Glucose (UA) Negative (Negative) mg/dL Urine Ketones Negative (Negative) mg/dL Urine Blood Negative (Negative) Urine Nitrite Negative (Negative) Ur Leukocyte Esterase Negative (Negative) Urine RBC 0-2 (0-2) /HPF Urine WBC 0-5 (0-5) /HPF Ur Squamous Epith Cells 0-2 (0-2) /HPF Urine Bacteria None Seen (None Seen) Hyaline Casts 0-2 (0-2) /LPF Radiology Impression Discussion of test interpretation with radiology: I have reviewed the radiologist's reading. Chronic Conditions Previous history kidney stone Medications Administered Discontinued Medications Generic Name Dose Route Start Last Admin Trade Name Freq PRN Reason Stop Dose Admin Sodium Chloride 1,000 mls @ 999 mls/hr 04/28/24 09:45 04/28/24 11:53 Ns IV 04/28/24 10:45 Infused .Q1H1M JAH Infusion Iohexol 85 ml 04/28/24 10:36 04/28/24 10:36 Iohexol 350 Mg/Ml 100 Ml Infus..Btl IV 04/28/24 10:37 85 ml ONCE ONE Administration Ketorolac Tromethamine 15 mg 04/28/24 09:41 04/28/24 10:10 Ketorolac Tromethamine 15 Mg/Ml Vial IVPUSH 04/28/24 09:42 15 mg ONCE ONE Administration Discharge Plan Discharge Clinical Impression: Pleural effusion Patient Disposition: Home, Self-Care Instructions: Pleural Effusion (ED) Prescriptions: No Action calcipotriene 0.005 % cream topical BID betamethasone dipropionate 0.05 % cream topical lisinopril 10 mg tablet 10 mg PO DAILY Qty: 90 2RF fluticasone propionate [Children's Flonase Allergy Rlf] 50 mcg/actuation spray,suspension 1 spray intranasal BID PRN (Reason: allergy symptoms) Qty: 16 0RF Rx Instructions: administer into each nostril Referrals: Agustin Beauchamp MD [Primary Care Provider] - 04/30/24 Print Language: Bulgarian
[2024-04-28 10:09] VITALS: BP 103/81; PULSE 70; RESP 16; TEMP 36.9; O2SAT 99
[2024-04-28] MEDS: Ketorolac Tromethamine 15 MG/ML VIAL IVPUSH (10:10)
[2024-04-28] MEDS: 0.9 % Sodium Chloride 1,000 ML 999 ML IV (10:10)
--- NOTE | 2024-04-28 10:10 | PC.NURSE ---
PIV established, pt medicated per OCT. VS updated. Awaiting CT Scan.
[2024-04-28] MEDS: iohexoL 350 MG/ML 100 ML INFUS..BTL 85 ML IV (10:36)
[2024-04-28 10:58] VITALS: BP 124/85; PULSE 66; RESP 16; TEMP 36.6; O2SAT 98
[2024-04-28 12:42] VITALS: BP 124/85; PULSE 66; RESP 16; TEMP 36.6; O2SAT 98
== END 2024-04-28 12:42 | disposition home or self-care (01) ==
PROVIDERS: Emergency Provider Emergency Medicine Emergency Medical Services; PCP Internal Medicine
DX: J90 Pleural effusion, not elsewhere classified (principal); R10.9 Unspecified abdominal pain; I10 Essential (primary) hypertension; K21.9 Gastro-esophageal reflux disease without esophagitis; E78.00 Pure hypercholesterolemia, unspecified
CPT/HCPCS: 36415; 74177; 80053; 81001; 83690; 85025; 96361; 96374; 99284; J1885; Q9967

== ENCOUNTER 2024-05-12 15:40 | Outpatient (AMB) | payer BC, SELFPAY ==
[2024-05-12 15:42] VITALS: BP 122/80; PULSE 62; O2SAT 99; BMI 26.8
--- NOTE | 2024-05-12 15:42 | A.OFFPC_ITS ---
Vital Signs 05/12/24 15:42 Height 5 ft 6 in Weight 166 lb BMI 26.8 BP 122/80 Blood Pressure Location Lt brachial Position Sitting Pulse 62 Pulse Source Pulse Oximeter Pulse Oximetry (%) 99 Oxygen Delivery Method Room Air Intake Visit Reasons: Small RT pleural effusion/RT basilar atelectasis Intake Note: Patient is here to follow-up after a visit the emergency department at [facility] on 04/28/24 Supply Chain Design Manager Required: No Allergies penicillin G Allergy (Mild, Verified 05/12/24 15:43) rash latex [LATEX] Allergy (Unknown, Verified 05/12/24 15:43) RASH penicillin V Allergy (Unknown, Verified 05/12/24 15:43) rash Penicillins [PENICILLINS] Allergy (Unknown, Verified 05/12/24 15:43) HIVES Medication List - Last Reconciled 05/12/24 by Madiha Sweeney PA-C betamethasone dipropionate 0.05% appl topical calcipotriene 0.005% appl topical BID fluticasone propionate 50 mcg/actuation (Children's Flonase Allergy Relief) 1 spray intranasal BID PRN lisinopril 10 mg PO DAILY metronidazole 0.75% appl topical PRN Tobacco use date assessed: 10/13/23 Dental Screening Dental Screen Date: 01/22/24 HPI Small RT pleural effusion/RT basilar atelectasis HPI Details 58-year-old overweight male with hyperte nsion GERD hypercholesterolemia coming in for hospital follow up. In review of notes patient was seen in [facility] ED 04/28/2024 for right sided abdominal pain. CT abd/pelvis done and showed small pleural effusion otherwise negative. No evidence of pneumonia on CXR. Patient states since the ER he has been feeling generally well but does still have some mild discomfort in the right side worse at the end of the day. Denies any cough, shortness of breath, chest pain, or fevers. He does mentioned when he is trying to sleep on his right side he does have some discomfort but otherwise has no other concerns. Pain has significantly improved since ER visit. [facility] Medical History HTN (hypertension) Yeast infection of the skin Vitamin D deficiency Hypercholesterolemia GERD (gastroesophageal reflux disease) Surgical History History of removal of cyst Family History Father Colon cancer Hypercholesteremia Mother Osteoporosis Thyroid disease Past heart attack Paternal Grandfather Myocardial infarction Brother In good health Brother In good health Social History (Updated 10/13/23 @ 16:31 by Agustin Beauchamp MD) Housing: Apartment Alcohol intake: former Comment: 2022 Patient Tobacco Use Status: Never used Tobacco e-Cigarette/Vaping Use: Never Used Second Hand Smoke Exposure: No Current occupational status: employed Cognitive needs: No Hearing needs: No Vision needs: Yes (glasses) Questionnaire Thrive Questionnaire Date Thrive assessed: 10/13/23 I am a: Patient What is your living situation today?: I have a steady place to live Within the past 12 months, did the food you bought not last and you didn't have the money to get more?: Never true Within the past 12 months, did you worry whether your food would run out before you got money to buy more?: Never true Do you have trouble paying for medicines?: No Do you have trouble getting transportation to medical appointments?: No Do you have trouble paying your heating and electricity bill?: No Do you have trouble taking care of your child, family member or friend?: No Do you have trouble with day-to-day activities such as bathing, preparing meals, shopping, managing finances, etc.?: No Are you currently unemployed and looking for a job?: No Are you interested in more education?: No Please select the resources that you would like help with: None Currently or been in a relationship where the following occur: No concerns reported THRIVE Score: 0 AUDIT C Alcohol Use Questionnaire (AUDIT-C) 1. How often do you have a drink containing alcohol?: Never 3. How often do you have six or more drinks on one occasion?: Never Total Score: 0 GUANAKITO-7 AMB Questionnaire GUANAKITO-7 Date GUANAKITO - 7 assessed: 10/13/23 Source: Developed by Drs. Khalif Marie, Joycelyn Atkins, Germán Palomino and colleagues, with an educational lorri from [employer]. Review of Systems Const Denies body aches and Denies fever(s) Eyes Reports no additional complaints ENT Reports no additional complaints Card Denies chest pain, Denies leg edema, Denies lightheadedness and Denies dyspnea Resp Denies cough, Denies hemoptysis, Denies dyspnea and Denies wheezing GI Reports no additional complaints Musc Details: Right-sided flank pain Aller/Immun Denies wheezing Physical exam (Primary Care) Vital Signs: Last Vital Signs Pulse 62 05/12/24 15:42 BP 122/80 05/12/24 15:42 Pulse Ox 99 05/12/24 15:42 Oxygen Delivery Method Room Air 05/12/24 15:42 BMI result Body Mass Index 26.8 Tobacco/Smoking Status: Tobacco use Status Tobacco use date assessed 10/13/23 05/12/24 15:43 Patient Tobacco Use Status Never used Tobacco 05/12/24 15:43 e-Cigarette/Vaping Use Never Used 05/12/24 15:43 Thrive Assessment: Date of Thrive Assessment Date Thrive assessed 10/13/23 05/12/24 15:43 Currently or been in a relationship where the following occur: No concerns reported Const General: cooperative, healthy appearing, comfortable and no acute distress Orientation/consciousness: patient oriented x3 HENMT Head: Yes normocephalic Ears: hearing grossly normal bilaterally General nose exam: Normal external nose present Eyes General: appearance normal, both eyes and all related structures Conjunctivae: conjunctivae normal Neck Neck: Yes full ROM and Yes no lymphadenopathy Resp Effort & Inspection: normal respiratory effort Auscultation: clear to auscultation bilaterally, no crackles, no rales, no rhonchi and no wheezes Cardio Rate: regular rate Rhythm: regular rhythm Skin General skin exam: no rashes or lesions noted Neuro General: patient oriented x3 Gait exam (Neuro): Normal gait present Extrem General: Yes normal to inspection, Yes full ROM and No edema Psych Affect: normal affect Attitude: cooperative Insight: Good insight present (Psych) Judgement: Good judgement present (Psych) Assessment and Plan Assessment & Plan (1) Pleural effusion: Code(s): J90 - Pleural effusion, not elsewhere classified Plan: Patient was found to have very small pleural effusion on right side and advised to have follow up imaging. Ordered for repeat chest x-ray to be completed 1 month from original hospital visit. Patient agrees to have imaging done and we will follow up pending image results. Continue to monitor symptoms and if you began to have chest pain, shortness of breath, cough, or fevers please call the office to schedule an appointment. (2) HTN (hypertension): Code(s): I10 - Essential (primary) hypertension Plan: Continue on current blood pressure medication. Avoid salt intake and encourage healthy diet and regular exercise. Blood pressure at goal today 122/80. (3) Right flank pain: Code(s): R10.9 - Unspecified abdominal pain Plan: Workup in the hospital was negative for any acute reason of right flank pain. Patient states the pain has been improving and continue to use Tylenol and ibuprofen as needed for pain. Plan This note was constructed using voice recognition software. While every effort has been made to ensure accuracy and data base design analyst, still areas may have been included sometimes these areas may affect the content or meeting of the given symptoms. Total time spent caring for the patient today was 20 minutes. This includes time spent before the visit reviewing the chart, time spent during the visit, and time spent after the visit and documentation. Orders: Orders XR chest 2V 2 Weeks J90 - Pleural effusion, not elsewhere classified Coding Level of Care Code Est Pt Level 3 (79614) Diagnoses Pleural effusion J90 HTN (hypertension) I10 Right flank pain R10.9
== END 2024-05-12 16:25 | disposition home or self-care (01) ==
PROVIDERS: PCP Internal Medicine
DX: J90 Pleural effusion, not elsewhere classified (principal); I10 Essential (primary) hypertension; R10.9 Unspecified abdominal pain

== ENCOUNTER → 2024-05-12 15:40 | Outpatient (BNVA) | payer BC, SELFPAY | PROVIDERS: PCP Internal Medicine | DX: J90 Pleural effusion, not elsewhere classified (principal); I10 Essential (primary) hypertension; R10.9 Unspecified abdominal pain ==

== ENCOUNTER 2024-05-26 15:39 | Outpatient (REF) | payer BC, SELFPAY ==
--- NOTE | ~2024-05-26 | XR_ITS ---
EXAMINATION: XR CHEST 2 VIEWS CLINICAL INFORMATION: Pleural effusion, not elsewhere classified J90. COMPARISON: XR Chest 10/20/2018 TECHNIQUE: 2 views of the chest were obtained. FINDINGS: No significant abnormality is noted involving the heart, lungs, mediastinum, bony thorax or soft tissues. XR/XR chest 2V IMPRESSION: Unremarkable examination. Electronically signed by: Manuela Davison MD 07/28/2024 03:14 PM [facility]
== END 2024-05-26 15:40 | disposition home or self-care (01) ==
LOC: HO.XRAY 15:39
PROVIDERS: PCP Internal Medicine
DX: J90 Pleural effusion, not elsewhere classified (principal)
CPT/HCPCS: 71046

== ENCOUNTER 2024-06-07 08:58 | Day surgery (SDC) | payer BC, SELFPAY ==
[2024-06-03 14:45] VITALS: BMI 28.2
[2024-06-07 10:02] VITALS: BMI 26.2
[2024-06-07] MEDS: Lactated Ringers 1,000 ML 100 ML IVCONT (10:11)
[2024-06-07 10:19] VITALS: BP 135/84; PULSE 68; RESP 18; TEMP 36.7; O2SAT 98
--- NOTE | 2024-06-07 10:25 | HO.ANESPROP2 ---
Documented by User: Rosemarie Grissom NP 06/04/24 10:32 HPI - Anesthesia Eval Consult details Narrative: 58yo M for Colonoscopy Incidental finding of small pleural effusion 04/2024 with ER visit for abdominal pain. F/U with PCP without worsening of symptoms. Repeat CXR done, but not read at this time. T/C to patient to eval current status, but unable to reach. PMF Active Problems Active Problems: All Active Problems Right flank pain (Acute) Chest pain (Acute) Tubular adenoma of colon (Acute) Corneal abrasion (Acute) Sinusitis (Acute) Nasal polyp (Acute) Lateral epicondylitis of left elbow (Acute) Psoriasis (Acute) Rosacea (Acute) Constipation (Acute) Hemorrhoids (Acute) Tinea cruris (Acute) Annual physical exam (Acute) Lateral epicondylitis of right elbow (Acute) Allergic contact dermatitis (Acute) PSA elevation (Acute) Cellulitis (Acute) Vitamin D deficiency (Acute) HTN (hypertension) (Acute) Hypercholesterolemia (Acute) GERD (gastroesophageal reflux disease) (Acute) Past Medical History Medical History HTN (hypertension) Yeast infection of the skin Vitamin D deficiency Hypercholesterolemia GERD (gastroesophageal reflux disease) Family History Family History Father Colon cancer Hypercholesteremia Mother Osteoporosis Thyroid disease Past heart attack Paternal Grandfather Myocardial infarction Brother In good health Brother In good health Surgical History Surgical History H/O colonoscopy History of removal of cyst Social History Social History (Updated 10/13/23 @ 16:31 by Agustin Beauchamp MD) Housing: Apartment Are you a primary direct support professional caregiver to a significant other at home: No Do you presently have visiting nurse or other home services: No Alcohol intake: former Comment: 2022 Patient Tobacco Use Status: Never used Tobacco e-Cigarette/Vaping Use: Never Used Second Hand Smoke Exposure: No Have you been hit, kicked, punched, or otherwise hurt by someone within the past year? If so, by whom?: No Are you DNR?: No Advance Directives: No Advance Directives Information Provided: Yes Recently lost weight without trying: No Nutrition Risks: No Nutritional Risk Poor oral hygiene: No Current occupational status: employed Cognitive needs: No Hearing needs: No Vision needs: Yes (glasses) Meds Allergies Allergy/AdvReac Type Severity Reaction Status Date / Time latex [LATEX] Allergy Intermediate RASH Verified 06/07/24 10:04 Penicillins [PENICILLINS] Allergy Intermediate HIVES Verified 06/07/24 10:04 Home Medications ?Medication ?Instructions ?Recorded ?Confirmed ?Last Taken ?Type betamethasone dipropionate 0.05 % appl topical 04/15/23 05/12/24 Unknown History topical cream calcipotriene 0.005 % topical cream appl topical BID 04/15/23 05/12/24 Unknown History metronidazole 0.75 % topical cream appl topical PRN Itching 05/12/24 05/12/24 Unknown History Exam Height,Weight and Vital Signs: Height 5 ft 5.5 in Weight 78.018 kg Pertinent Lab Results Pertinent Lab Results: Laboratory Tests 04/28/24 06:58 WBC 11.4 H Hgb 14.8 Hct 43.6 Plt Count 281 Sodium 138 Potassium 3.9 Chloride 104 Carbon Dioxide 25 BUN 15 Creatinine 0.89 Narrative Narrative: Exercise Stress 2023 Protocol: SAHIL Max HR: 164 BPM 101% of Pred: 162 BPM Max BP: 162/082 mmHG Max Work Load: 9.5 METS Exercise stress test exercise 7 min 39 sec of Sahil protocol achieving 101% MPHR, with mild SOB, 4/10 left sided pinching in chest, with isolated PVCs, with normotensive response to exercise, with scooping lead V6. Chest discomfort resolved with rest. Test reviewed with Dr. Salgado. CT abdomen pelvis w IV con 04/2024 IMPRESSION: Small right pleural effusion and right basilar atelectasis. Assessment and Plan Assessment Anesthesia Assessment: Chart Reviewed Documented by User: Janie Escobar DO 06/07/24 10:34 HPI - Anesthesia Eval Consult details Narrative: 58yo M for Colonoscopy Incidental finding of small pleural effusion 04/2024 with ER visit for abdominal pain. F/U with PCP without worsening of symptoms. Repeat CXR done, but not read at this time. Patient is stable with some lingering right sided pain. [facility] Past Medical History Medical History HTN (hypertension) Yeast infection of the skin Vitamin D deficiency Hypercholesterolemia GERD (gastroesophageal reflux disease) Family History Family History Father Colon cancer Hypercholesteremia Mother Osteoporosis Thyroid disease Past heart attack Paternal Grandfather Myocardial infarction Brother In good health Brother In good health Family history of problems with anesthesia: No Surgical History Surgical History H/O colonoscopy History of removal of cyst History of Problems with Anesthesia: No Social History Social History (Updated 10/13/23 @ 16:31 by Agustin Beauchamp MD) Housing: Apartment Are you a primary direct support professional caregiver to a significant other at home: No Do you presently have visiting nurse or other home services: No Alcohol intake: former Comment: 2022 Patient Tobacco Use Status: Never used Tobacco e-Cigarette/Vaping Use: Never Used Second Hand Smoke Exposure: No Have you been hit, kicked, punched, or otherwise hurt by someone within the past year? If so, by whom?: No Are you DNR?: No Advance Directives: No Advance Directives Information Provided: Yes Recently lost weight without trying: No Nutrition Risks: No Nutritional Risk Poor oral hygiene: No Current occupational status: employed Cognitive needs: No Hearing needs: No Vision needs: Yes (glasses) Meds Allergies Allergy/AdvReac Type Severity Reaction Status Date / Time latex [LATEX] Allergy Intermediate RASH Verified 06/07/24 10:04 Penicillins [PENICILLINS] Allergy Intermediate HIVES Verified 06/07/24 10:04 Home Medications ?Medication ?Instructions ?Recorded ?Confirmed ?Last Taken ?Type betamethasone dipropionate 0.05 % appl topical 04/15/23 05/12/24 Unknown History topical cream calcipotriene 0.005 % topical cream appl topical BID 04/15/23 05/12/24 Unknown History metronidazole 0.75 % topical cream appl topical PRN Itching 05/12/24 05/12/24 Unknown History Exam Exam Date and Time: 06/07/24 1025 Height,Weight and Vital Signs: Height 5 ft 5.5 in Weight 78.018 kg Vital Signs Temperature 98.1 F 06/07/24 10:19 Pulse Rate 68 06/07/24 10:19 Respiratory Rate 18 06/07/24 10:19 Blood Pressure 135/84 06/07/24 10:19 Pulse Oximetry 98 06/07/24 10:19 Oxygen Delivery Method Room Air 06/07/24 10:19 Temperature 98.1 F 06/07/24 10:19 Pulse Rate 68 06/07/24 10:19 Respiratory Rate 18 06/07/24 10:19 Blood Pressure 135/84 06/07/24 10:19 Pulse Oximetry 98 06/07/24 10:19 Oxygen Delivery Method Room Air 06/07/24 10:19 Airway Mallampati Class: II TM Dist: >3cm Neck ROM: Full Loose/Missing/Broken Teeth: No (patient denies any looseor broken teeth) Heart: S1S2 Lungs: CTAB Assessment and Plan Assessment Anesthesia Assessment: Anesthesia Plan Discussed and Chart Reviewed Final Anesthetic Review Family History of Problems with Anesthesia: No History of Problems with Anesthesia: No NPO: Yes ASA Class: II Final Preanesthetic Review: No Changes in Pt Med Stat, Meds/Allgs Chart Reviewed, Consent Obtained/Reviewed and Anes Risks/Benef Reviewed Patient Risk: Low Procedure Risk: Low Anesthetic Plan Anesthetic Plan: MAC: and Agree w/ Assess. and Plan Disposition: Standard PACU
[2024-06-07 11:36] VITALS: BP 88/49; PULSE 78; RESP 16; TEMP 36.1; O2SAT 100
--- NOTE | 2024-06-07 11:36 | PM.OP ---
Brief Operative Note Date of Service: 06/07/24 Pre-op diagnosis: Screening Post-op diagnosis: other (Polyp) Procedure: Colonoscopy to the cecum and TI with biopsy and removal of polyp Surgeon: Khalif Yang MD Anesthesia: MAC Was an Supervisor Model Making used for this Procedure?: No Estimated blood loss (mL): 2.0 Pathology: other (A. Cecal polyp) Condition: stable Disposition: PACU
[2024-06-07 11:51] VITALS: BP 115/74; PULSE 64; RESP 16; TEMP 36.1; O2SAT 100
--- NOTE | 2024-06-07 12:19 | OP_ITS ---
DATE OF SERVICE: 06/07/2024 SURGEON: Khalif Yang MD INDICATIONS: The patient presents for evaluation of personal history of tubular adenoma of the colon, family history of colon cancer, and colorectal cancer screening. Full consent has been obtained from him for this, including risks of bleeding and perforation. PREOPERATIVE DIAGNOSIS: POSTOPERATIVE DIAGNOSIS: PROCEDURE PERFORMED: Colonoscopy to the cecum and terminal ileum with biopsy and removal of polyp. ESTIMATED BLOOD LOSS: COMPLICATIONS: ANESTHESIA: Monitored anesthesia care. ASSISTANTS: SPECIMENS: PREOPERATIVE DIAGNOSES: Colorectal cancer screening, family history of colon cancer, personal history of tubular adenoma of the colon. POSTOPERATIVE DIAGNOSES: Colorectal cancer screening, family history of colon cancer, personal history of tubular adenoma of the colon, small colon polyp, diverticulosis, and internal hemorrhoids. DESCRIPTION OF PROCEDURE: The patient was placed in the left lateral decubitus position. The digital rectal exam revealed small external hemorrhoids. The Olympus video pediatric colonoscope was entered into the rectum and advanced easily to the cecum. Once in the cecum, I did identify cecal pouch with appendiceal orifice and a normal-appearing ileocecal valve. The terminal ileum was cannulated and appeared normal. The scope was withdrawn back in the colon. The entire cecum was well visualized and appeared normal other than a 3 mm probable hyperplastic polyp, which was biopsied and completely removed with a cold biopsy forceps. The scope was slowly withdrawn assessing all mucosal surfaces carefully. Preparation was excellent. I did not visualize any other polyps, colitis, nor angiodysplasia. There was a mild amount of sigmoid diverticulosis. In the rectum, scope was retroflexed visualizing internal hemorrhoids, but no other pathology. The rectal mucosa appeared normal. Scope was straightened and withdrawn from the patient. He tolerated the procedure well and was returned to the recovery area in stable condition. IMPRESSION: 1. Small colon polyp. 2. Diverticulosis. 3. Internal and external hemorrhoids. PLAN: The results of the biopsy will be checked. Even if this is not a tubular adenoma, I would recommend a followup coloscopy in 5 years for further screening given his previous history and family history. He will otherwise see me on a p.r.n. basis. MD ALDEN King/ANTWAN / [phone]
== END 2024-06-07 12:25 | disposition home or self-care (01) ==
PROVIDERS: PCP Internal Medicine; Visit Provider Internal Medicine
PROC: 0DJD8ZZ Inspection of Lower Intestinal Tract, Via Natural or Artificial Opening Endoscopic (ICD-10-PCS; CPT 45378; principal; 2024-06-07 10:30)
DX: Z12.11 Encounter for screening for malignant neoplasm of colon (principal); Z86.0101 Personal history of adenomatous and serrated colon polyps; Z80.0 Family history of malignant neoplasm of digestive organs; K51.40 Inflammatory polyps of colon without complications; K57.30 Diverticulosis of large intestine without perforation or abscess without bleeding; K64.8 Other hemorrhoids; K64.4 Residual hemorrhoidal skin tags; I10 Essential (primary) hypertension; Z79.899 Other long term (current) drug therapy; L23.1 Allergic contact dermatitis due to adhesives; Z88.0 Allergy status to penicillin
CPT/HCPCS: 45380; 88305; J2704

== ENCOUNTER 2024-10-15 15:53 | Outpatient (AMB) | payer BC, SELFPAY ==
--- NOTE | 2024-10-15 16:08 | A.OFFPC_ITS ---
Vital Signs 10/15/24 16:10 Height 5 ft 5.5 in Weight 176 lb BMI 28.8 BP 124/80 Blood Pressure Location Lt brachial Position Sitting Pulse 65 Pulse Source Pulse Oximeter Temp 97.3 F Temp Source Temporal Artery Scan Pulse Oximetry (%) 98 Oxygen Delivery Method Room Air Intake Visit Reasons: PHYSCAL Intake Note: Patient is here today for a physical. Operational Trainer Required: No Accompanied by: Self / Same As Patient Allergies latex [LATEX] Allergy (Intermediate, Verified 10/15/24 16:12) RASH Penicillins [PENICILLINS] Allergy (Intermediate, Verified 10/15/24 16:12) HIVES Medication List - Last Reconciled 10/15/24 by Agustin Beauchamp MD betamethasone dipropionate 0.05% appl topical calcipotriene 0.005% appl topical BID lisinopril 10 mg PO DAILY metronidazole 0.75% appl topical PRN Tobacco use date assessed: 10/15/24 Dental Screening Dental Screen Date: 10/15/24 Did you have a dental visit in the last 12 months?: Yes Did you have a dental problem in the last 6 months where you did not have access to dental care?: No Was dental information given to patient?: Patient has dentist [facility] Medical History (Updated 10/15/24 @ 16:22 by Agustin Beauchamp MD) HTN (hypertension) Yeast infection of the skin Vitamin D deficiency Hypercholesterolemia GERD (gastroesophageal reflux disease) Surgical History H/O colonoscopy History of removal of cyst Family History Father Colon cancer Hypercholesteremia Mother Osteoporosis Thyroid disease Past heart attack Paternal Grandfather Myocardial infarction Brother In good health Brother In good health Social History Housing: Apartment Are you a primary assurance services manager health care to a significant other at home: No Do you presently have visiting nurse or other home services: No Alcohol intake: former Comment: 2022 Patient Tobacco Use Status: Never used Tobacco e-Cigarette/Vaping Use: Never Used Second Hand Smoke Exposure: No service: No Current occupational status: employed Cognitive needs: No Hearing needs: No Vision needs: Yes (glasses) Questionnaire PHQ-9 Over the last 2 weeks, how often have you been bothered by any of the following problems? 1. Little interest or pleasure in doing things: not at all 2. Feeling down, depressed, or hopeless: not at all 3. Trouble falling or staying asleep, or sleeping too much: not at all 4. Feeling tired or having little energy: not at all 5. Poor appetite or overeating: not at all 6. Feeling bad about yourself - or that you are a failure or have let yourself or your family down: not at all 7. Trouble concentrating on things, such as reading the newspaper or watching television: not at all 8. Moving or speaking so slowly that other people could have noticed. Or the opposite - being so fidgety or restless that you have been moving around a lot more than usual: not at all 9. Thoughts that you would be better off or of hurting yourself in some way: not at all Total score: 0 Depression Screening Interpretation: Negative Depression Screening Done: Yes 95750 - PHQ-9 Billing: Yes Source: Developed by Drs. Khalif Marie, Joycelyn Atkins, Germán Palomino and colleagues, with an educational lorri from [employer]. Thrive Questionnaire Date Thrive assessed: 10/15/24 I am a: Patient What is your living situation today?: I have a steady place to live Within the past 12 months, did the food you bought not last and you didn't have the money to get more?: Never true Within the past 12 months, did you worry whether your food would run out before you got money to buy more?: Never true Do you have trouble paying for medicines?: No Do you have trouble getting transportation to medical appointments?: No Do you have trouble paying your heating and electricity bill?: No Do you have trouble taking care of your child, family member or friend?: No Do you have trouble with day-to-day activities such as bathing, preparing meals, shopping, managing finances, etc.?: No Are you currently unemployed and looking for a job?: No Are you interested in more education?: No Please select the resources that you would like help with: None Currently or been in a relationship where the following occur: No concerns reported THRIVE Score: 0 AUDIT C Alcohol Use Questionnaire (AUDIT-C) 1. How often do you have a drink containing alcohol?: Never 3. How often do you have six or more drinks on one occasion?: Never Total Score: 0 GUANAKITO-7 AMB Questionnaire GUANAKITO-7 Date GUANAKITO - 7 assessed: 10/15/24 Feeling nervous, anxious, or on edge: 0 = Not at all Not being able to stop or control worryin = Not at all Worrying too much about different things: 0 = Not at all Trouble relaxin = Not at all Being so restless that it is hard to sit still: 0 = Not at all Becoming easily annoyed or irritable: 0 = Not at all Feeling afraid as if something awful might happen: 0 = Not at all Total GUANAKITO-7 score (0-4 normal; 5-9 mild; 10-14 moderate; 15-21 severe): 0 Source: Developed by Drs. Khalif Marie, Joycelyn Atkins, Germán Palomino and colleagues, with an educational lorri from [employer]. GUANAKITO-7 Assessment Billing GUANAKITO-7 Assessment Tool: GUANAKITO-7 Assessment 58929 Review of Systems Const Denies poor appetite and Denies weakness Eyes Denies no additional complaints ENT Reports Normal hearing present, Denies dizziness, Denies nasal congestion, Denies tinnitus and Denies sore throat Card Denies chest pain, Denies syncope, Denies rapid heart rate and Denies dyspnea Resp Denies cough and Denies dyspnea GI Denies change in stool character, Reports constipation, Denies diarrhea, Denies nausea and Denies vomiting Denies dysuria and Denies urinary frequency Neuro Reports Normal hearing present, Denies confusion, Denies dizziness, Denies syncope and Denies weakness Psych Denies confusion Physical exam (Primary Care) Vital Signs: Last Vital Signs Temp 97.3 F 10/15/24 16:10 Pulse 65 10/15/24 16:10 BP 124/80 10/15/24 16:10 Pulse Ox 98 10/15/24 16:10 Oxygen Delivery Method Room Air 10/15/24 16:10 BMI result Body Mass Index 28.8 Tobacco/Smoking Status: Tobacco use Status Tobacco use date assessed 10/15/24 10/15/24 16:16 Patient Tobacco Use Status Never used Tobacco 10/15/24 16:08 e-Cigarette/Vaping Use Never Used 10/15/24 16:08 PHQ-9: PHQ-9 Score PHQ-9: Total score 0 10/15/24 16:22 Depression Screening Interpretation: Negative Thrive Assessment: Date of Thrive Assessment Date Thrive assessed 10/15/24 10/15/24 16:16 Currently or been in a relationship where the following occur: No concerns reported Const General: No confusion Orientation/consciousness: No confusion HENMT Head: Yes normocephalic Ears: external ears normal and TM's normal bilaterally Face and sinus: Yes normal facial exam Mouth: moist mucous membranes Throat: Yes tonsils normal Eyes Conjunctivae: conjunctivae normal Pupils: Equal, round and reactive pupils present and Pupil accommodation reflex normal Direct Ophthalmoscopy: normal light reflex Neck Neck: No lymphadenopathy Thyroid: Thyroid normal Chest Chest palpation & inspection: normal inspection of the chest Resp Effort & Inspection: normal respiratory effort and no audible wheezes Auscultation: clear to auscultation bilaterally, no crackles, no wheezes and lung sounds not diminished Cardio Rate: regular rate Rhythm: regular rhythm Peripheral pulses: radial pulses present and dorsalis pedis present GI Other: recent colontest Palpation (GI): no masses Auscultation: normal bowel sounds and normoactive bowel sounds Rectal Exam - Male: Yes deferred Male General Exam: Yes normal external exam Skin General skin exam: no rashes or lesions noted Rashes: no rashes Neuro General: No confusion Cranial nerves: Yes Equal, round and reactive pupils present and Yes Normal hearing present Cognition (Neuro): normal cognition Gait exam (Neuro): Normal gait present Motor exam (neuro): 5/5 motor strength present throughout Deep tendon reflexes (DTR's): Right brachioradialis reflex intensity grade: 2+, Left brachioradialis reflex intensity grade: 2+, Right patellar reflex intensity grade: 2+ and Left patellar reflex intensity grade: 2+ Extrem General: No edema Coding Level of Care Code Est Pt Prev Care 40-64y(87658) Diagnoses Annual physical exam Z00.00 Gastroesophageal reflux disease without esophagitis K21.9 Esophagitis presence: without esophagitis Hypercholesterolemia E78.00 HTN (hypertension) I10 Tubular adenoma of colon D12.6 Nasal polyp J33.9 Additional Codes GUANAKITO-7 Assessment Billing - GUANAKITO-7 Assessment Tool: GUANAKITO-7 Assessment 51861 ([id number]) PHQ-9 - 81028 - PHQ-9 Billing: Yes ([id number]) Assessment & Plan Assessment & Plan (1) Annual physical exam: Code(s): Z00.00 - Encounter for general adult medical examination without abnormal findings Category: Medical Plan: Patient is advised to eat healthy, keep well hydrated, keep active and have adequate sleep. (2) GERD (gastroesophageal reflux disease): Code(s): K21.9 - Gastro-esophageal reflux disease without esophagitis Category: Medical Qualifiers: Esophagitis presence: without esophagitis Qualified Code(s): K21.9 - Gastro-esophageal reflux disease without esophagitis Plan: Avoid the foods that causes that usually spicy foods, tomato products, juices, coffee, soda and foods that your sensitive to. After eating do not lie down, allow 3-4 hours before in lie down. And keep the head of bed above 30 degrees to avoid the acid from going up. (3) Hypercholesterolemia: Code(s): E78.00 - Pure hypercholesterolemia, unspecified Category: Medical Plan: Avoid fried foods, chicken skin, eggs, butter margarine, pastries and meat. Be it pork or beef they have a lot of cholesterol LDL goal of less than 130 and triglyceride of less than 150 (4) HTN (hypertension): Code(s): I10 - Essential (primary) hypertension Category: Medical Plan: Continue with blood pressure medication. Decrease salt intake and exercise (5) Tubular adenoma of colon: Comment: Tubular adenoma 2018May 2024 5 year Code(s): D12.6 - Benign neoplasm of colon, unspecified Category: Medical Plan: Last colon test was 06/06/2024 and has been advise recall in 5 years (6) Nasal polyp: Code(s): J33.9 - Nasal polyp, unspecified Category: Medical Plan History of Present Illness The patient is a 58-year-old male presenting for a wellness and follow-up visit. He has a longstanding history of essential hypertension well-controlled with lisinopril, alongside hypercholesterolemia under management since last recorded LDL values were aligning with target goals. His medical history includes recurring gastroesophageal reflux disease with self-resolving flare-ups through pharmacological means. An incidental esophageal hernia complicates GERD management but remains stable without recent documented exacerbations. Psoriasis episodes respond to topical therapies, showing a pattern of remission and recurrence. Surveillance is ongoing due to previously detected tubular adenoma with advice for future colonoscopic examination, augmented by familial colon cancer history. Following a pleural effusion episode in 2023, the patient's respiratory assessment identifies no remaining issues after resolution. The potential onset of blood sugar dysregulation requires a fasting blood test to substantiate the initial findings obtained in a non-fasted state at an emergency care setting. Prostate health vigilance is warranted due to noted PSA elevation and happens without clinical manifestations. Health Maintenance - Blood pressure monitoring and management plan in place with Lisinopril. - Cholesterol management, last LDL recorded at 110 mg/dL with a goal to maintain LDL <130 mg/dL and triglycerides <150 mg/dL. - Colon cancer surveillance in place, advised repeat colonoscopy in 5 years post-May 2024. - GERD managed with [id number] medications, monitoring for esophageal symptoms with an incidental esophageal hernia. - Psoriasis management with topical creams for episodic flare-ups. - Annual physical examination completed May 2024. - Monitoring and evaluation for PSA due to elevated levels. Social History - Patient abstains from alcohol consumption. - No tobacco use reported. 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 - Reports limited water intake, aiming for improvement in hydration. - Concerns around stress related to facilitating family medical care discu ssions. Review of Systems - General: Denies dizziness, nausea, vomiting, and fever. - Respiratory: Denies shortness of breath, cough, or chest pain. - Cardiovascular: Denies current chest pain. - Gastrointestinal: Reports dry mouth; denies difficulty swallowing. - Genitourinary: Denies current urinary symptoms. - Musculoskeletal: Reports occasional knee discomfort related to exercise. - Neurological: Denies passing out, feels normal. - Dermatological: Reports psoriasis flares responsive to topical treatment. - Ear/Nose/Throat: Reports nasal polyps, potential recurrence noted. Physical Exam General: Cooperative, healthy appearing, comfortable, no acute distress and well developed Orientation: Patient oriented x3 Limitations: No limitations Head: Normal to inspection Ears: Hearing grossly normal bilaterally Nose: Nasal polyp noted Face and sinus: Normal facial exam Eyes: Appearance normal, both eyes and all related structures Neck: Normal visual inspection and Yes full ROM Respiratory: Normal respiratory effort and able to speak in complete sentences. Clear to auscultation bilaterally Cardiovascular: Regular rate and rhythm. Normal S1 and S2 GI: Normal to inspection. Soft to palpation and nontender Skin: Psoriasis noted, currently managed with creams Neuro: Patient oriented x3 Extremities: Normal to inspection, patient reports occasional knee discomfort related to exercise Results - Labs: Last known LDL at 110 mg/dL; Fasting blood sugar pending. - Imaging/Tests: Previous chest X-ray post-pleural effusion negative. Plan For hypertension, the continuation of lisinopril with adherence to lifestyle measures to maintain optimal control is advised. Cholesterol management involves maintaining dietary interventions, with planned annual fasting lipid profiles. GERD oversight includes continuation of current [id number] treatment and symptom-specific lifestyle changes. Post-tubular adenoma findings lead to a planned repeat colonoscopy within five years. Nasal polyps warrant a referral to ENT for further evaluation, with non-surgical treatment options to be pursued. PSA values require ongoing monitoring with regular lab assessments. Immediate attention to fasting blood glucose is recommended to explore initial elevated readings in non-fasting conditions. Psoriasis treatment remains topical for acute relief, while increased fluid intake is encouraged alongside exercise strategies addressing knee discomfort from physical activity. Patient was informed and verbally consented to the use of an ambient scribe for clinic note documentation during this visit. Discussion Notes I discussed essential hypertension management, emphasizing maintaining lisinopril therapy and lifestyle optimization for blood pressure control. For hypercholesterolemia, I stressed dietary adherence, planning for periodic lipid panel assessments. Gastroesophageal reflux disease management continues with existing OTC regimens and lifestyle adjustments considering esophageal hernia presence. We established the necessity of colon cancer surveillance given the adenomatous polyp history. Regarding nasal polyps, I suggested consulting ENT to explore non-surgical resolutions. Monitoring of prostate health will persist, following prior elevated PSA. Fasting blood glucose testing is pending to evaluate potential blood sugar dysregulation. Psoriasis strategy remains topical application- focused. The importance of fluid intake, exercise, and mitigating knee strain was highlighted. Follow-up was structured to review any impending concerns and plans. I ensured understanding of each treatment's risks, benefits, and alternatives, emphasizing patient engagement in care direction decisions. Patient Instructions - Continue lisinopril as prescribed for blood pressure management. - Maintain dietary habits to support cholesterol control, aiming for fasting lipid profile review. - Use OTC remedies as directed for reflux symptoms, monitoring any exacerbations. - Keep track of yearly screenings, including the scheduled repeat colonoscopy. - Consult ENT regarding nasal polyp treatment options without surgery. - Monitor PSA levels, adhering to recommended lab evaluations. - Schedule fasting blood glucose assessment. - Apply psoriasis creams during flare-ups as needed. - Increase daily water intake and engage in regular physical activity to prevent discomfort and promote overall health. - Report any new symptoms or changes in existing conditions promptly. Orders: Orders Comprehensive Met. Panel Today E78.00 - Pure hypercholesterolemia, unspecified Free T4 (Free Thyroxine) Today E78.00 - Pure hypercholesterolemia, unspecified Lipid Panel Today E78.00 - Pure hypercholesterolemia, unspecified Thyroid Stimulating Hormone Today E78.00 - Pure hypercholesterolemia, unspecified Hemoglobin A1c Today E78.00 - Pure hypercholesterolemia, unspecified Complete Blood Count Auto Diff Today E78.00 - Pure hypercholesterolemia, unspecified Vitamin B12 and Folate Today E78.00 - Pure hypercholesterolemia, unspecified Prostate Specific Antigen Scr Today E78.00 - Pure hypercholesterolemia, unspecified Referrals Ear/Nose/Throat Referral R10.9 - Unspecified abdominal pain Medications: New mometasone 50 mcg/actuation (Nasonex 24hr Allergy) administer into each nostril 2 sprays intranasal DAILY 17 grams 0RF J33.9 - Nasal polyp, unspecified Changed From lisinopril 10 mg PO DAILY 90 tabs 2RF I10 - Essential (primary) hypertension To lisinopril insurance wants 60 tablets only each script 10 mg PO DAILY 60 tabs 6RF I10 - Essential (primary) hypertension
[2024-10-15 16:10] VITALS: BP 124/80; PULSE 65; TEMP 36.3; O2SAT 98; BMI 28.8
--- OUTSIDE RECORDS SUMMARY | 2024-10-15 17:51 | XMS_ITS | Patient Health Record ---
Author Organization [facility] Address [address] [place] [id number] Care Team Providers Care Flute Polisher Name Role Phone Agustin Beauchamp MD Primary Care Provider Khalif Ireland Unavailable [phone] ALLERGIES Allergen (clinical drug ingredient) Drug/Non Drug Allergy documented on EMR Reaction Allergy Type Onset Date Status Penicillin Unknown Drug Allergy Active adhesive tape (uncoded) Unknown Allergy Active RESULTS Component Value Reference Range Notes Pathology (Not yet reviewed by provider) Interpretation: Performing Lab:[facility], [address] [place] [id number] Notes/Report: REASON FOR REFERRAL Referring Provider First Name Agustin Referring Provider Last Name Nito Referring Provider Speciality Internal M edicine Referred Organization [facility] Referred Provider Khalif Yang Referred Address [address] [place] [address], ite [address] [place] [id number], Referred Provider Specialty Gastroentero logy General Notes Eryn Manuel 024 09:54:59 AM EDT > requested an o blue referral from Tanya at Dr. Beauchamp's office for colon with Dr Yang on 06-07-2024 Referral Priority Routine MEDICATIONS Medication SIG (Take, Route, Frequency, Duration) Notes Start Date End Date Status Lisinopril 10 MG Oral for 90 A ctive Calcipotriene 0.005 % APPLY TO AFFECTED AREA S) OF THE BODY TWO TIMES A DAY. MIX 1:1 RATIO WITH BETAMETHASONE External for 30 Active Betamethasone Dipropionate 0.05 % APPLY TO AFFECTED AREA S) OF THE BODY TWO TIMES A DAY FOR 2 WEEKS, BREAK ONE WEEK, REPEAT NEEDED External for 30 Active IMMUNIZATIONS Vaccine Route Administration Date Status Comme nts Influenza Unknown 03/18/2018 Administered SOCIAL HISTORY Sex Assigned At : Social History Observation Description Sex Assigned At Unknown Alcohol Screen Question Answer Notes Did you have a drink containing alcohol in the p ast year? No Points 0 Interpretation Negative PROBLEMS Problem Type ICD Code Onset Dates Problem Status W/U Status Risk SNOMED Code Notes Problem Encounter for screening for malignant neoplasm of colon (Z12.11) Active confirmed 994045079 Problem Diverticulosis of large intestine without perforation or abscess without bleeding (K57.30) Active confirmed Diverticul ar disease of colon (744122394) Problem Preprocedural examination (Z01.818) Active confirmed Preprocedural examination (956814913988280) Problem Gastroesophageal reflux disease, esophagitis presence not specified (K21.9) Active confirmed 638393747 Problem Hx of adenomatous colonic polyps (Z86.010) Active confirmed 733817326 Problem Family history of colon cancer in father (Z80.0) Active confirmed Family histor y of malignant neoplasm of gastrointestinal tract (169060465) VITAL SIGNS Blood pressure diastolic 00 mm Hg 02/10/2024 Height 65.5 in 02/10/2024 Blood pressure systolic 00 mm Hg 02/10/2024 Weight 172 lbs 02/10/2024 BMI 28.18 kg/m2 02/10/2024 Encounters Encounter Location Date Provider Diagnosis [facility] [place] Outpatient [address], [place] [id number] 06/07/2024 Khalif Yang Colon cancer screeni ng Z12.11 ; Colon polyps K63.5 ; Family history of colon cancer Z80.0 ; Diverticulosis of large intestine without perforation or abscess without bleeding K57.30 and Other hemorrhoids K64.8 [facility] [address] [place] [id number] 02/10/2024 Khalif Yang Hx of adenomatous colonic polyps Z86.010 ; Preprocedural examination Z01.818 ; Encounter for screening for malignant neoplasm of colon Z12.11 and Family history of colon cancer in father Z80.0 [facility] [address] [place] [phone] 04/22/2024 Khalif Yang ASSESSMENTS Encounter Date Diagnosis Assessment Notes Treatment Notes Treatment Clinical Notes 06/07/2024 Colon cancer screening (ICD-10 - Z12.11) 06/07/2024 Colon polyps (ICD-10 - K63.5) 02/10/2024 Preprocedural examination (ICD-10 - Z01.818) 02/10/2024 Hx of adenomatous colonic polyps (ICD-10 - Z86.010) 06/07/2024 Family history of colon cancer (ICD-10 - Z80.0) 02/10/2024 Encounter for screening for malignant neoplasm of colon (ICD-10 - Z12.11) 06/07/2024 Diverticulosis of large intestine without perforation or abscess without bleeding (ICD-10 - K57.30) 02/10/2024 Family history of colon cancer in father (ICD-10 - Z80.0) 06/07/2024 Other hemorrhoids (ICD-10 - K64.8) PLAN OF TREATMENT Pending Test Test Name Order Date Pathology 06/07/2024 Future Test Test Name Order Date COLONOSCOPY 01/21/2014 COLONOSCOPY 12/17/2018 COLONOSCOPY 02/10/2024 Insurance Providers Payer Name Payer Address Payer Phone Subscriber Number Group Number Insured Name Patient Relationship to Insured Coverage Start Date Coverage End Date [facility] CLAIMS [address] [place] [address] [id number] COLON, TANNER Self - patient is the insured MEDICAL (GENERAL) HISTORY Medical History History ICD Code Screening colonoscopy 09-02-2008--1 small tubular adenoma removed Denies [place],DM,CVA,Lung disease,renal dise ase Colonoscopy 02/2014--hyperplastic poyp Hypertension Colonoscopy 01/2019 with a hyperplastic p olyp Surgical History Surgery Date(Month/Year) Cyst removal on back of neck
--- OUTSIDE RECORDS SUMMARY | 2024-10-15 17:51 | XMS_ITS ---
Author Organization [facility] Address [address] [place] [address] Care Team Providers Care Salesforce Business Analyst Name Role Phone Agustin Beauchamp MD Primary Care Provider Khalif Ireland Unavailable [phone] REASON FOR VISIT insurance is what is in the system Encounters Encounter Location Date Provider Diagnosis [facility] [address] [place] [address] 04/22/2024 Khalif Yang PLAN OF TREATMENT No Information
--- OUTSIDE RECORDS SUMMARY | 2024-10-15 17:51 | XMS_ITS ---
Author Organization [facility] Address [address] [place] [address] Care Team Providers Care Clock Mechanic Name Role Phone Agustin Beauchamp MD Primary Care Provider Khalif Ireland Unavailable [phone] ALLERGIES Allergen (clinical drug ingredient) Drug/Non Drug Allergy documented on EMR Reaction Allergy Type Onset Date Status Penicillin Unknown Drug Allergy Active adhesive tape (uncoded) Unknown Allergy Active REASON FOR VISIT Patient presents today for a colon screening MEDICATIONS Medication SIG (Take, Route, Frequency, Duration) [...] WEEK, REPEAT NEEDED External for 30 Active SOCIAL HISTORY Sex Assigned At : Social History Observation Description Sex Assigned At Unknown Alcohol Screen Question Answer Notes Did you have a drink containing alcohol in the p ast year? No Points 0 Interpretation Negative PROBLEMS Problem Type ICD Code Onset Dates Problem Status W/U Status Risk SNOMED Code Notes Problem Preprocedural examination (Z01.818) Active confirmed Preprocedural examination (845461016199949) Problem Family history of colon cancer in father (Z80.0) Active confirmed Family history of malignant neoplasm of gastrointestinal tract (325471274) VITAL SIGNS Blood pressure systolic 00 mm Hg 02/10/20 24 Blood pressure diastolic 00 mm Hg 024 Height 65.5 in 02/10/2024 Weight 172 lbs 02/10/2024 BMI 28.18 kg/m2 02/10/2024 Encounters Encounter Location Date Provider Diagnosis [facility] [address] [place] [address] 02/10/2024 Khalif Yang Hx of adenomatous colonic polyps Z86.010 ; Preprocedural examination Z01.818 ; Encounter for screening for malignant neoplasm of colon Z12.11 and Family history of colon cancer in father Z80.0 ASSESSMENTS Encounter Date Diagnosis Assessment Notes Treatment Notes Treatment Clinical Notes 02/10/2024 Hx of adenomatous colonic polyps (ICD-10 - Z86.010) 02/10/2024 Preprocedural examination (ICD-10 - Z01.818) 02/10/2024 Encounter for screening for malignant neoplasm of colon (ICD-10 - Z12.11) 02/10/2024 Family history of colon cancer in father (ICD-10 - Z80.0) PLAN OF TREATMENT Future Test Test Name Order Date COLONOSCOPY 02/10/2024 Next Appt Details Follow Up: prn, Reason: Progress Notes * Examination Category Sub-Category Detail Notes General Examination GENERAL APPEARANCE: pleasant , well nourished, well developed, in no acute distress HEAD: EYES: sclera non-icteric EARS: NOSE: THROAT: NECK/THYROID: no cervical lymphade nopathy, neck supple HEART: S1, S2 normal CHEST: LUNGS: clear to auscultatio n bilaterally ABDOMEN: normal bowel sounds, no guarding or rigidity, no guarding or rigidity, no masses palpable, soft, nontender, nondistended NEUROLOGIC: alert and oriented SKIN: nonjaundiced, no spi francisco angiomata EXTREMITIES: no edema PERIPHERAL PULSES: BACK: BREASTS: MUSCULOSKELETAL: MALE GENITOURINARY: LYMPH NODES: RECTAL EXAM: FEMALE GENITOURINARY: ORAL CAVITY: mucosa moist
--- OUTSIDE RECORDS SUMMARY | 2024-10-15 17:51 | XMS_ITS ---
Author Organization [facility] Address [address] [place] [address] Care Team Providers Care Greenhouse Or Nursery Transplanter Name Role Phone Agustin Beauchamp MD Primary Care Provider Khalif Ireland Unavailable [phone] REASON FOR VISIT screening,hx polyps PROBLEMS Problem Type ICD Code Onset Dates Problem Status W/U Status Risk SNOMED Code Notes Problem Diverticulosis of large intestine without perforation or abscess without bleeding (K57.30) Active confirmed Diverticul ar disease of colon (341190973) Encounters Encounter Location Date Provider Diagnosis [facility] [address], [place] [id number] 06/07/2024 Khalif Yang Colon cancer scree warren Z12.11 ; Colon polyps K63.5 ; Family history of colon cancer Z80.0 ; Diverticulosis of large intestine without perforation or abscess without bleeding K57.30 and Other hemorrhoids K64.8 ASSESSMENTS Encounter Date Diagnosis Assessment Notes Treatment Notes Treatment Clinical Notes 06/07/2024 Colon cancer screening (ICD-10 - Z12.11) 06/07/2024 Colon polyps (ICD-10 - K63.5) 06/07/2024 Family history of colon cancer (ICD-10 - Z80.0) 06/07/2024 Diverticulosis of large intestine without perforation or abscess without bleeding (ICD-10 - K57.30) 06/07/2024 Other hemorrhoids (ICD-10 - K64.8) PLAN OF TREATMENT No Information
== END 2024-10-15 16:46 | disposition home or self-care (01) ==
PROVIDERS: PCP Internal Medicine; Visit Provider Internal Medicine
DX: Z00.00 Encounter for general adult medical examination without abnormal findings (principal); K21.9 Gastro-esophageal reflux disease without esophagitis; E78.00 Pure hypercholesterolemia, unspecified; I10 Essential (primary) hypertension; D12.6 Benign neoplasm of colon, unspecified; J33.9 Nasal polyp, unspecified

== ENCOUNTER → 2024-10-15 15:53 | Outpatient (BNVA) | payer BC, SELFPAY | PROVIDERS: PCP Internal Medicine; Visit Provider Internal Medicine | DX: Z00.00 Encounter for general adult medical examination without abnormal findings (principal); K21.9 Gastro-esophageal reflux disease without esophagitis; E78.00 Pure hypercholesterolemia, unspecified; I10 Essential (primary) hypertension; J33.9 Nasal polyp, unspecified; Z79.899 Other long term (current) drug therapy; Z86.0101 Personal history of adenomatous and serrated colon polyps | CPT/HCPCS: 96127 ==

== ENCOUNTER 2024-11-16 14:54 | Outpatient (REF) | payer BC, SELFPAY ==
[2024-11-16 15:04] LABS: MANUAL DIFF FLAG NO
[2024-11-16 15:51] LABS: Basophils Percent Auto 0.2 % (0-2); Eosinophils Absolute Auto 0.1 X10*3/uL (0.0-0.4); Eosinophils Percent Auto 0.6 % (0-4); Hematocrit 46.2 % (42.0-52.0); Hemoglobin 15.3 g/dl (14.0-18.0); Imm Gran Abs Auto 0.04 X10*3/uL (0.00-0.03); Imm Gran Pct Auto 0.4 % (0.0-0.4); Lymphocytes Absolute Auto 1.5 X10*3/uL (1.2-4.9); Lymphocytes Percent Auto 14.1 % (20-40); Mean Corpuscular HGB Conc 33.1 g/dl (31.0-36.0); Mean Corpuscular Hemoglobin 29.1 pg (27.0-33.0); Mean Corpuscular Volume 87.8 fL (80.0-98.0); Mean Platelet Volume 10.3 fL (9.4-12.4); Monocytes Absolute Auto 0.9 X10*3/uL (0.1-1.2); Monocytes Percent Auto 8.3 % (2-11); Neutrophils Absolute Auto 8.3 x10*3/uL (2.0-8.3); Neutrophils Percent Auto 76.4 % (45-73); Platelet Count 299 X10*3/uL (160-400); Red Blood Count 5.26 X10*6/uL (4.60-5.80); White Blood Count 10.9 X10*3/uL (4.8-10.8)
[2024-11-16 17:13] LABS: Estimated Average Glucose 108 mg/dL; Hemoglobin A1C 142.6121 umol/L; Hemoglobin A1c % 5.4 % (<6.0); Total Hemoglobin (HGBA1C) 3989.0216 umol/L
--- OUTSIDE RECORDS SUMMARY | 2024-11-16 17:47 | XMS_ITS ---
Author Organization [facility] Address [address] [place] [address] Care Team Providers Care Oyster Culturist Name Role Phone Agustin Beauchamp MD Primary Care Provider Khalif Ireland [phone] Allergies Allergen (clinical drug ingredient) Drug/Non Drug Allergy documented on EMR Reaction Allergy Type Onset Date Status Penicillin Unknown Drug Allergy Active adhesive tape (uncoded) Unknown Allergy Active REASON FOR VISIT Patient presents today for a colon screening Medications Medication SIG (Take, Route, Frequency, Duration) Notes [...] WEEK, REPEAT NEEDED External for 30 Active Social History Alcohol Screen Question Answer Notes Did you have a drink containing alcohol in the p ast year? No Points 0 Interpretation Negative Section Notes: Nonsmoker; no sig alcohol Problems Problem Type SNOMED Code ICD Code Onset Dates Problem Status W/U Status Risk Notes Problem Preprocedural examination (789964941112130) Preprocedural examination (Z01.818) Active confirmed Problem Family history of malignant neoplasm of gastrointestinal tract (929834855) Family history of colon cancer in father (Z80.0) Active confirmed Vital Signs Blood pressure systolic 00 mm Hg 02/10/20 24 Blood pressure diastolic 00 mm Hg 024 Height 65.5 in 02/10/2024 Weight 172 lbs 02/10/2024 BMI 28.18 kg/m2 02/10/2024 Encounters Encounter Location Date Provider Diagnosis [facility] [address] [place] [address] 02/10/2024 Khalif Yang Hx of adenomatous colonic polyps Z86.010 ; Preprocedural examination Z01.818 ; Encounter for screening for malignant neoplasm of colon Z12.11 and Family history of colon cancer in father Z80.0 Assessments Encounter Date Diagnosis (ICD Code) Assessment Notes Treatment Notes Treatment Clinical Notes Section Notes 02/10/2024 Hx of adenomatous colonic polyps (ICD-10 - Z86.010) Overall, Tanner appears well. Given his personal history of a tubular adenoma of the colon, his family history of colon cancer, and his last colonoscopy being 5 years ago, I did recommend a followup colonoscopy for further screening purposes. We did review the rationale for this in regard to colon cancer prevention. Full consent has been obtained for this, including risks of bleeding and perforation. The procedure will be done with monitored anesthesia care. Tanner was comfortable with this plan. Thank you again for allowing me to participate in Tanner's care. I shall continue to keep you advised of his progress. 02/10/2024 Preprocedural examination (ICD-10 - Z01.818) Overall, Tanner appears well. Given his personal history of a tubular adenoma of the colon, his family history of colon cancer, and his last colonoscopy being 5 years ago, I did recommend a followup colonoscopy for further screening purposes. We did review the rationale for this in regard to colon cancer prevention. Full consent has been obtained for this, including risks of bleeding and perforation. The procedure will be done with monitored anesthesia care. Tanner was comfortable with this plan. Thank you again for allowing me to participate in Tanner's care. I shall continue to keep you advised of his progress. 02/10/2024 Encounter for screening for malignant neoplasm of colon (ICD-10 - Z12.11) Overall, Tanner appears well. Given his personal history of a tubular adenoma of the colon, his family history of colon cancer, and his last colonoscopy being 5 years ago, I did recommend a followup colonoscopy for further screening purposes. We did review the rationale for this in regard to colon cancer prevention. Full consent has been obtained for this, including risks of bleeding and perforation. The procedure will be done with monitored anesthesia care. Tanner was comfortable with this plan. Thank you again for allowing me to participate in Tanner's care. I shall continue to keep you advised of his progress. 02/10/2024 Family history of colon cancer in father (ICD-10 - Z80.0) Overall, Tanner appears well. Given his personal history of a tubular adenoma of the colon, his family history of colon cancer, and his last colonoscopy being 5 years ago, I did recommend a followup colonoscopy for further screening purposes. We did review the rationale for this in regard to colon cancer prevention. Full consent has been obtained for this, including risks of bleeding and perforation. The procedure will be done with monitored anesthesia care. Tanner was comfortable with this plan. Thank you again for allowing me to participate in Tanner's care. I shall continue to keep you advised of his progress. Plan Of Treatment Future Test Test Name Order Date COLONOSCOPY 02/10/2024 Next Appt Details Follow Up: prn, Reason: Progress Notes * TANNER MEIDNADOB:1965 (58 yo M)Acc No.[id number]:02/10/2024 Progress Notes Patient:?TANNER MEDINA Provider:?Khalif Yang MD :1965???Age:58 Y???Sex:Male Arden e:02/10/2024 Address:[address] [place], [place] [id number] Pcp:Agustin Beauchamp MD Subjective: * Chief Complaints: * ???Patient presents today fo r a colon screening * HPI: ???incontinence:? I saw Tanner in the office today for evaluation of his personal history of a tubular adenoma of the colon, family history of colon cancer in his father, and need for colorectal cancer screening. ?I last saw Tanner in January of 2019, at which time he underwent a negative followup screening colonoscopy other than a hyperplastic polyp. He presently feels well. He enjoys a good appetite, without any significant heartburn or dysphagia. His bowel movements have been regular and without any signs of bleeding. He denies abdominal pain, jaundice, nor unintentional weight loss. His family history is notable for his father having had colon cancer at about age 70 and a brother having had a history of colon polyps. * ROS:?General/Constitutional:?Change in appetite?denies.?Chills?denies.?Fatigue?denies.?Ophthalmologic:?Comments?all negative.?ENT:?Comments?all negative.?Respiratory:?hemoptysis?denies.?Cough?denies.?Cardiovascular:?Chest pain?denies.?Orthopnea?denies.?Gastrointestinal:?Comments?See HPI for details.?Genitourinary:?Hematuria?denies.?Dysuria?denies.?Musculoskeletal:?Painful joints?denies.?Weakness?denies.?Skin:?Itching?denies.?Rash?denies.?Neurologic:?Headache?denies.?Seizures?denies.?Psychiatric:?Comments?all negative.? * Medical History:? * Surgical History:?Cyst remov al on back of neck * Hospitalization/Major Diagno stic Procedure:?No Hospitalization History. * Family History:?Father: mandeep lowe, His father was diagnosed with colon cancer at the age of 70., diagnosed with HTN (hypertension), Colon cancer.?Mother: , diagnosed with Heart disease, HTN (hypertension).?Siblings: The patient's brother had colon polyps at the age of 45., diagnosed with Colon polyps.? The patient's father was diagnosed with colon cancer at the age of 70 and the patient's brother had colon polyps at the age of 45. * Social History:?Tobacco Use:?Tobacco Use/Smoking?Are you a: nonsmoker.?Drugs/Alcohol:?Alcohol Screen?Did you have a drink containing alcohol in the past year??No,?Points?0,?Interpretation?Negative.?Miscellaneous:?Marital status: single. 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 ???Nonsmoker; no sig alcohol. * Medications:?TakingLisinopri l 10 MG Tablet Oral Calcipotriene 0.005 % Cream APPLY TO AFFECTED AREA S) OF THE BODY TWO TIMES A DAY. MIX 1:1 RATIO WITH BETAMETHASONE External Betamethasone Dipropionate 0.05 % Cream APPLY TO AFFECTED AREA S) OF THE BODY TWO TIMES A DAY FOR 2 WEEKS, BREAK ONE WEEK, REPEAT NEEDED External Taking Lisinopril 10 MG Tablet Oral Taking Calcipotriene 0.005 % Cream APPLY TO AFFECTED AREA S) OF THE BODY TWO TIMES A DAY. MIX 1:1 RATIO WITH BETAMETHASONE External Taking Betamethasone Dipropionate 0.05 % Cream APPLY TO AFFECTED AREA S) OF THE BODY TWO TIMES A DAY FOR 2 WEEKS, BREAK ONE WEEK, REPEAT NEEDED External DiscontinuedPriLOSEC as neededVitamin D 76907 UNIT Tablet 1 tablet Orally once ad weekMedication List reviewed and reconciled with the patientDiscontinued PriLOSEC as neededDiscontinued Vitamin D 17300 UNIT Tablet 1 tablet Orally once ad weekMedication List reviewed and reconciled with the patient * Allergies:?adhesive tapePeni cillinyes[Allergies Verified] Objective: * Vitals:?Wt: 172 lbs, Ht: 65. 5 in, BMI:28.18 Index, BP: 00/00 mm Hg. * Examination: ???General Examination: ?GENERAL APPEARANCE:?pleasant, well nourished, well developed, in no acute distress.?EYES:?sclera non-icteric.?ORAL CAVITY:?mucosa moist.?NECK/THYROID:?no cervical lymphadenopathy, neck supple.?SKIN:?nonjaundiced, no spider angiomata.?HEART:?S1, S2 normal.?LUNGS:?clear to auscultation bilaterally.?ABDOMEN:?normal bowel sounds, no guarding or rigidity, no guarding or rigidity, no masses palpable, soft, nontender, nondistended.?EXTREMITIES:?no edema.?NEUROLOGIC:?alert and oriented.? Assessment: * Assessment: 1.?Preprocedural examination - Z01.818 (Primary)?2.?Hx of adenomatous colonic polyps - Z86.010?3.?Encounter for screening for malignant neoplasm of colon - Z12.11?4.?Family history of colon cancer in father - Z80.0? Overall, Tanner appears well . Given his personal history of a tubular adenoma of the colon, his family history of colon cancer, and his last colonoscopy being 5 years ago, I did recommend a followup colonoscopy for further screening purposes. We did review the rationale for this in regard to colon cancer prevention. Full consent has been obtained for this, including risks of bleeding and perforation. The procedure will be done with monitored anesthesia care. Tanner was comfortable with this plan. Thank you again for allowing me to participate in Tanner's care. I shall continue to keep you advised of his progress. Plan: * Treatment: 2.?Encounter for screening for malignant neoplasm of colon?Procedure: COLONOSCOPY (Ordered for 02/10/2024)* with MACsched for 06/07/24 a t 10:30 ammiralax * Procedure Codes:?3017F COLOR ECTAL CA SCREEN DOC [id number] TOBACCO [id number] BP SCR NOT PRFRM REC REASON NOS * Preventive Medicine:? ??Counseling:?Care goal follow-up plan:?Above Normal BMI Follow-up?Giving encouragement to exercise,?BMI management provided?Yes.? * Follow Up:?prn * * Sign off status: Completed true * Provider:?Khalif Yang MD Date:? 024 Generated for Alice chavez/Nkechi/eTransmitting on:?11/16/2024 05:46 PM EDT History and Physical Notes * HPI (History of Present Illness) Category Sub-Category Detail Notes Category Not es incontinence I saw Tanner in the office today for evaluation of his personal history of a tubular adenoma of the colon, family history of colon cancer in his father, and need for colorectal cancer screening. I last saw Tanner in January of 2019, at which time he underwent a negative followup screening colonoscopy other than a hyperplastic polyp. He presently feels well. He enjoys a good appetite, without any significant heartburn or dysphagia. His bowel movements have been regular and without any signs of bleeding. He denies abdominal pain, jaundice, nor unintentional weight loss. His family history is notable for his father having had colon cancer at about age 70 and a brother having had a history of colon polyps. Examination Category Sub-Category Detail Notes Category Not es General Examination GENERAL APPEARANCE: pleasant , well [...]
--- OUTSIDE RECORDS SUMMARY | 2024-11-16 17:47 | XMS_ITS | Patient Health Record ---
Author Organization [facility] Address [address] [place] [address] Care Team Providers Care Net Software Engineer Name Role Phone Agustin Beauchamp MD Primary Care Provider Khalif Ireland [phone] Allergies Allergen (clinical drug ingredient) Drug/Non Drug Allergy documented on EMR Reaction Allergy Type Onset Date Status Penicillin Unknown Drug Allergy Active adhesive tape (uncoded) Unknown Allergy Active Results Component Value Reference Range Notes Pathology (Not yet reviewed by provider) Interpretation: Performing Lab:[facility], [address] [place] [id number] Notes/Report: Name: Tanner Medina ge/Sex: 58/M : 1965 Unit#: [id number] Attend Dr: Khalif Yang MD Re06/07/24 Status : [facility] Location: [email or web address] Disch: SPEC : [id number] RECD : 06/07/24 STATUS: BANDAR DAVIDSON NUM: [id number] GUERO: 06/07/[address] [facility] [address]: Khalif Yang MD ENTERED: 06/07/24-07 21 SP TYPE: Surgical OTHR DR: Agustin Beauchamp MD ORDERED: HE Stain/3, Gross Micro L4 Diagnosis Cecum, polypectomy: Inflammatory polyp. Clinical History Pre-Op Dx: Screening Post-Op Dx: Colon po lyp, diverticulosis, hemorrhoids Microscopic Description Microscopic sections reviewed. Material Received Cecal polyp Gross Description Received in formalin labeled ?cecal polyp? is a 0.5 cm godoy-pink rectangular tissue fragment, submitted in toto in a cassette labeled A. CEDS Copies To: Agustin Beauchamp MD [facility],[address] [place] [address] Khalif Yang MD [facility] [address] [place] [address] Signed (si gnature on file) Zuhair West MD 06/08/24 1223 END OF REPORT Reason For Referral Referring Provider First Name Agustin Referring Provider Last Name Po Referring Provider Speciality Internal M edicine Referred Organization [facility] Referred Provider Khalif Yang Referred Address [address],[facility] [address],[place], [place],[address],[place] Referred Provider Specialty Gastroentero logy General Notes KalebTion 024 09:54:59 AM EDT > requested [facility] [place] from Tanya at Dr. Beauchamp's office for colon with Dr Yang on 06-07-2024 Referral Priority Routine Medications Medication SIG (Take, Route, Frequency, Duration) [...] WEEK, REPEAT NEEDED External for 30 Active Immunizations Vaccine Route Administration Date Status Comme nts Influenza Unknown 03/18/2018 Administered Social History Alcohol Screen Question Answer Notes Did you have a drink containing alcohol in the p ast year? No Points 0 Interpretation Negative Section Notes: Nonsmoker; no sig alcohol Nonsmoker; no sig alcohol Nonsmoker; no sig alcohol Problems Problem Type SNOMED Code ICD Code Onset Dates Problem Status W/U Status Risk Notes Problem 822432807 Encounter for screening for malignant neoplasm of colon (Z12.11) Active confirmed Problem Diverticular disease of colon (875576512) Diverticulosis of large intestine without perforation or abscess without bleeding (K57.30) Active confirmed Problem Preprocedural examination (629223947159392) Preprocedural examination (Z01.818) Active confirmed Problem 696930748 Gastroesophageal reflux disease, esophagitis presence not specified (K21.9) Active confirmed Problem 367611287 Hx of adenomatou s colonic polyps (Z86.010) Active confirmed Problem Family history of malignant neoplasm of gastrointestinal tract (848407368) Family history of colon cancer in father (Z80.0) Active confirmed Vital Signs Blood pressure diastolic 00 mm Hg 02/10/2024 Height 65.5 in 02/10/2024 Blood pressure systolic 00 mm Hg 02/10/2024 Weight 172 lbs 02/10/2024 BMI 28.18 kg/m2 02/10/2024 Encounters Encounter Location Date Provider Diagnosis [facility] [address] [place] [id number] 06/07/2024 Khalif Yang Colon cancer screeni ng Z12.11 ; Colon polyps K63.5 ; Family history of colon cancer Z80.0 ; Diverticulosis of large intestine without perforation or abscess without bleeding K57.30 and Other hemorrhoids K64.8 [facility] [address] [place] [address] 02/10/2024 Khalif Yang Hx of adenomatous colonic polyps Z86.010 ; Preprocedural examination Z01.818 ; Encounter for screening for malignant neoplasm of colon Z12.11 and Family history of colon cancer in father Z80.0 [facility] [address] [place] [address] 04/22/2024 Khalif Yang Assessments Encounter Date Diagnosis (ICD Code) Assessment Notes Treatment Notes Treatment Clinical Notes Section Notes 06/07/2024 Colon cancer screening (ICD-10 - Z12.11) 06/07/2024 Colon polyps (ICD-10 - K63.5) 02/10/2024 Preprocedural examination (ICD-10 - Z01.818) Overall, [...] keep you advised of his progress. 02/10/2024 Hx of adenomatous colonic polyps (ICD-10 [...] to keep you advised of his progress. 06/07/2024 Family history of colon cancer (ICD-10 [...] to keep you advised of his progress. 06/07/2024 Diverticulosis of large intestine without perforation [...] to keep you advised of his progress. 06/07/2024 Other hemorrhoids (ICD-10 - K64.8) Plan Of Treatment Pending Test Test Name Order Date Pathology 06/07/2024 Future Test Test Name Order Date COLONOSCOPY 01/21/2014 COLONOSCOPY 12/17/2018 COLONOSCOPY 02/10/2024 Insurance Providers Payer Name Payer Address Payer Phone Subscriber Number Group Number Insured Name Patient Relationship to Insured Coverage Start Date Coverage End Date [facility] [address] [place] [address] [id number] TANNER MEDINA Self - patient is the insured Medical (General) History Medical History History ICD Code Screening colonoscopy 09-02-2008--1 small tubular adenoma removed Denies NE,DM,CVA,Lung disease,renal dise ase Colonoscopy 02/2014--hyperplastic poyp Hypertension Colonoscopy 01/2019 with a hyperplastic p olyp Surgical History Surgery Date(Month/Year) Cyst removal on back of neck
--- OUTSIDE RECORDS SUMMARY | 2024-11-16 17:47 | XMS_ITS ---
Author Organization [facility] Address [address] [place] [address] Care Team Providers Care Cdl Service Technician Name Role Phone Agustin Beauchamp MD Primary Care Provider Khalif Ireland [phone] REASON FOR VISIT insurance is what is in the system Encounters Encounter Location Date Provider Diagnosis [facility] [address] [place] [phone] 04/22/2024 Khalif Yang Plan Of Treatment No Information Progress Notes * TANNER MEDINADOB:1965 (58 yo M)Acc No.[id number]:04/22/2024 Patient:?TANNER MEDINA :1965???Age:58 Y???Sex:Male Address:[address] [place] [address] * true * Date:? Generated for Alice chavez/Nkechi/eTransmitting on:?11/16/2024 05:46 PM EDT
--- OUTSIDE RECORDS SUMMARY | 2024-11-16 17:47 | XMS_ITS ---
Author Organization [facility] Address [address] [place] [address] Care Team Providers Care Magician/Illusionist Name Role Phone Agustin Beauchamp MD Primary Care Provider Khalif Ireland [phone] REASON FOR VISIT screening,hx polyps Problems Problem Type SNOMED Code ICD Code Onset Dates Problem Status W/U Status Risk Notes Problem Diverticular disease of colon (862980324) Diverticulosis of large intestine without perforation or abscess without bleeding (K57.30) Active confirmed Encounters Encounter Location Date Provider [place] [facility] [place] [address] [place] [phone] 06/07/2024 Khalif Yang Colon cancer scree war[place] [...] Notes * TANNER MEDINADOB:1965 (58 yo M)Acc No.[id number]:06/07/2024 COLON WITH MAC Patient:?TANNER MEDINA Provider:?Khalif Yang MD :1965???Age:58 Y???Sex:Male Arden e:06/07/2024 Address:[address] [place], [place] [id number] Pcp:Agustin Beauchamp MD Subjective: * Chief Complaints: * ???1. Screening,hx polyps. * Medical History:? Objective: * Vitals:? Assessment: * Assessment: 1.?Colon cancer screening - Z12.11 (Primary)???2.?Colon polyps - K63.5???3.?Family history of colon cancer - Z80.0???4.?Diverticulosis of large intestine without perforation or abscess without bleeding - K57.30???5. Other hemorrhoids - K64.8??? Plan: * Treatment: * Procedure Codes:?95963 COLON OSCOPY AND BIOPSY, Modifiers: PT * * The named appointment provid er may or may not be the originator of this progress note, and it is not deemed complete until electronically signed by the appointment provider. Sign off status: Pending * Provider:?Khalif Yang MD Date:? 024 Generated for Alice chavez/Nkechi/Marsmitting on:?11/16/2024 05:46 PM EDT
[2024-11-16 17:56] LABS: Alanine Aminotransferase 28 U/L (0-40); Albumin Level 4.8 g/dL (3.5-5.0); Alkaline Phosphatase 56 U/L (39-117); Anion Gap 11 (12-20); Aspartate Amino Transferase 26 U/L (5-37); Bilirubin Total 0.6 mg/dL (0.0-1.0); Blood Urea Nitrogen 12 mg/dL (9-16); Calcium 9.9 mg/dL (8.4-10.2); Carbon Dioxide 26 mmol/L (22-29); Chloride 106 mmol/L (96-108); Cholesterol 192 mg/dL (<200); Estimated Glomerular Filt Rate > 60; Glucose Random 87 mg/dL (60-115); HDL Cholesterol 50 mg/dL (>40); LDL Cholesterol Calculated 133 mg/dL (<100); Potassium 3.9 mmol/L (3.3-5.1); Sodium 139 mmol/L (135-145); Total Protein 7.7 g/dL (6.5-8.0); Triglycerides 48 mg/dL (<150)
[2024-11-16 18:04] LABS: Free T4 (Free Thyroxine) 1.05 ng/dL (0.71-1.85); Thyroid Stimulating Hormone 1.07 uIU/mL (0.32-4.0)
[2024-11-16 18:35] LABS: Folate 9.2 ng/mL (> or = 4.0); Prostate Specific Antigen Scr 3.09 ng/mL (<0.05-4.0); Vitamin B12 530 pg/mL (200-900)
== END 2024-11-16 14:55 | disposition home or self-care (01) ==
LOC: HO.LAB 14:54
PROVIDERS: PCP Internal Medicine; Visit Provider Internal Medicine
DX: E78.00 Pure hypercholesterolemia, unspecified (principal); Z12.5 Encounter for screening for malignant neoplasm of prostate; Z13.1 Encounter for screening for diabetes mellitus
CPT/HCPCS: 36415; 80053; 80061; 82607; 82746; 83036; 84153; 84439; 84443; 85025

== ENCOUNTER 2025-03-09 08:55 | Outpatient (AMB) | payer BC, SELFPAY ==
--- OUTSIDE RECORDS SUMMARY | 2024-06-07 06:30 | XMS_ITS ---
Author Organization [facility] Address [address] [place] [address] Care Team Providers Care Whipped Topping Finisher Name Role Phone Agustin Beauchamp MD Primary Care Provider Khalif Ireland [phone] REASON FOR VISIT screening,hx polyps Problems Problem Type SNOMED Code ICD Code Onset Dates Problem Status W/U Status Risk Notes Problem Diverticular disease of colon (829728933) Diverticulosis of large intestine without perforation or abscess without bleeding (K57.30) Active confirmed Encounters Encounter Location Date Provider Diagnosis [facility] Outpatient [address] [place] [phone] 06/07/2024 Khalif Yang Colon cancer scree warren [...] Notes * TANNER MEDINADOB:1965 (59 yo M)Acc No.[id number]:06/07/2024 COLON WITH MAC Patient: Sofiya CLAUDIONELSON TANNER Provider: Devika Yang MD :1965 A ge:58 Y S ex:Male Date:06/07/2024 Address:[address] [place], [place] [phone] Pcp:Agustin Beauchamp MD Subjective: * Chief Complaints: * 1 . Screening,hx polyps. * Medical History: Objective: * Vitals: Assessment: * Assessment: 1. C olon cancer screening - Z12.11 (Primary) 2 . C olon polyps - K63.5? 3. F amily history of colon cancer - Z80.0 4 . D iverticulosis of large intestine without perforation or abscess without bleeding - K57.30 5 . Other hemorrhoids - K64.8 Plan: * Treatment: * Procedure Codes: 4 5380 COLONOSCOPY AND BIOPSY, Modifiers: PT * * The named appointment provid er may or may not be the originator of this progress note, and it is not deemed complete until electronically signed by the appointment provider. Sign off status: Pending * Provider: Devika Yang MD Date: 1 Generated for Alice chavez/Nkechi/Marsmitting on: 0 03/09/2025 09:21 AM EDT
[2025-03-09 08:57] VITALS: BP 110/68; PULSE 78; TEMP 36.8; O2SAT 97
--- NOTE | 2025-03-09 08:57 | AM.OFFWIN_ITS ---
Intake Vital Signs 03/09/25 08:57 Height 5 ft 5.5 in BP 110/68 Blood Pressure Location Rt brachial Position Sitting Pulse 78 Pulse Source Pulse Oximeter Temp 98.3 F Temp Source Oral Pulse Oximetry (%) 97 Oxygen Delivery Method Room Air Intake Visit Reasons: EP-cough, ?laryngitis Intake Note: presents with dry cough and laryngitis Patient Tobacco Use Status: Never used Tobacco Allergies latex (LATEX) Allergy (Intermediate, Verified 03/09/25 09:00) RASH Penicillins (PENICILLINS) Allergy (Intermediate, Verified 03/09/25 09:00) HIVES Do you need a note to return to daycare/school/sports/work: No HPI HPI Comments History of Present Illness Details History - The patient is a 59-year-old male pres enting with a persistent cough and loss of voice following travel. - Symptoms began during a vacation in [facility], approximately 10 days ago. - He returned to home on Friday. - He continues to have a dry cough and s ome congestion. - The patient reports using a nasal spra y which provided some relief for the congestion. - No history of fever, chills, chest priyanka n, or shortness of breath. - Denies smoking and reports no known ex posure to sick contacts. Physical Exam General: Cooperative, healthy appearing, comfortable and no acute distress Orientation/consciousness: Patient oriented x3 Limitations: No limitations Head: Normal to inspection Ears: Hearing grossly normal bilaterally, external ears normal and TM's normal bilaterally Nose: Normal external nose present, normal nares present, and nasal discharge present. Face and sinus: Sinuses tender to palpation. Mouth: Normal oral and palatal mucosa present and moist mucous membranes noted. Throat: Tonsils normal. Uvula is midline. Posterior oropharynx with erythema and no exudates. Eyes: Appearance normal, both eyes and all related structures Neck: Normal visual inspection, full ROM. No lymphadenopathy noted. Respiratory: Clear to auscultation bilaterally. Normal respiratory effort, able to speak in complete sentences. No respiratory distress, not tachypneic, no tripod positioning and no use of accessory muscles. Cardiovascular: Regular rate and rhythm. Normal S1 and S2 Skin: No rashes or lesions noted Patient was informed and verbally consented to the use of an ambient scribe for clinic note documentation during this visit [facility] Medical History (Updated 10/15/24 @ 16:22 by Agustin Beauchapm MD) HTN (hypertension) Yeast infection of the skin Vitamin D deficiency Hypercholesterolemia GERD (gastroesophageal reflux disease) Surgical History H/O colonoscopy History of removal of cyst Family History Father Colon cancer Hypercholesteremia Mother Osteoporosis Thyroid disease Past heart attack Paternal Grandfather Myocardial infarction Brother In good health Brother In good health Social History Housing: Apartment Are you a primary daycare manager to a significant other at home: No Do you presently have visiting nurse or other home services: No Alcohol intake: former Comment: 2022 Patient Tobacco Use Status: Never used Tobacco e-Cigarette/Vaping Use: Never Used Second Hand Smoke Exposure: No service: No Current occupational status: employed Cognitive needs: No Hearing needs: No Vision needs: Yes (glasses) Review of Systems Const All systems reviewed & are unremarkable except as noted in HPI and below Physical Exam Vital Signs: Last Vital Signs Temp 98.3 F 03/09/25 08:57 Pulse 78 03/09/25 08:57 BP 110/68 03/09/25 08:57 Pulse Ox 97 03/09/25 08:57 Oxygen Delivery Method Room Air 03/09/25 08:57 Assessment & Plan Assessment & Plan (1) Cough: Code(s): R05.9 - Cough, unspecified Qualifiers: Cough type: acute Qualified Code(s): R05.1 - Acute cough Plan Most likely URI vs flu vs bronchitis vs covid Plan - Prescribe antibiotics to address potential bacterial infection due to travel history and persistent symptoms. - Prescribe cough medicine to alleviate symptoms. - Tylenol or motrin as needed for pain or fever. - VSS, pt well appearing - follow up as needed if no better Medications: New azithromycin For 250 mg dose pack: take 500 mg today (day 1), then 250 mg for 4 days (days 2-5) PO 6 tabs 0RF benzonatate 100 mg PO bid-tid PRN 21 caps 0RF Cough 7 days Coding Level of Care Code Est Pt Level 3 (12997) Diagnoses Acute cough R05.1 Cough type: acute
== END 2025-03-09 09:56 | disposition home or self-care (01) ==
PROVIDERS: PCP Internal Medicine; Visit Provider Physician Assistant Medical
DX: R05.1 Acute cough (principal)

== ENCOUNTER 2025-07-27 13:53 | Outpatient (AMB) | payer BC, SELFPAY ==
--- OUTSIDE RECORDS SUMMARY | 2024-06-07 05:30 | XMS_ITS ---
Author Organization [facility] Address [address] [place] [address] Care Team Providers Care Curtain Mender Name Role Phone Agustin Beauchamp MD Primary Care Provider Khalif Ireland [phone] REASON FOR VISIT screening,hx polyps Problems Problem Type SNOMED Code ICD Code Onset Dates Problem Status W/U Status Risk Notes Problem Diverticular disease of colon (703875591) Diverticulosis of large intestine without perforation or abscess without bleeding (K57.30) Active confirmed Encounters Encounter Location Date Provider Diagnosis [facility] Outpatient [address] [place] [id number] 06/07/2024 Khalif Yang Colon cancer scree warren Z12.11 ; Colon polyps K63.5 ; Family history of colon cancer Z80.0 ; Diverticulosis of large intestine without perforation or abscess without bleeding K57.30 and Other hemorrhoids K64.8 Assessments Encounter Date Diagnosis (ICD Code) Assessment Notes Treatment Notes Treatment Clinical Notes Section Notes 06/07/2024 Colon cancer screening (ICD-10 - Z12.11) 06/07/2024 Colon polyps (ICD-10 - K63.5) 06/07/2024 Family history of colon cancer (ICD-10 - Z80.0) 06/07/2024 Diverticulosis of large intestine without perforation or abscess without bleeding (ICD-10 - K57.30) 06/07/2024 Other hemorrhoids (ICD-10 - K64.8) Plan Of Treatment No Information Progress Notes * TANNER MEDINADOB:1965 (59 yo M)Acc No.[id number]:06/07/2024 COLON WITH MAC Patient: Sofiya SHANONNELSON TANNER Provider: Devika Yang MD :1965 A ge:58 Y S ex:Male Date:06/07/2024 Address:[address] [place], [place] [id number] Pcp:Agustin Beauchamp MD Subjective: * Chief Complaints: * S creening,hx polyps Assessment: * Assessment: 1. C olon cancer screening - Z12.11 (Primary) 2 . C olon polyps - K63.5? 3. F amily history of colon cancer - Z80.0 4 . D iverticulosis of large intestine without perforation or abscess without bleeding - K57.30 5 . Other hemorrhoids - K64.8 Plan: * Procedure Codes: 4 5380 COLONOSCOPY AND BIOPSY, Modifiers: PT Billing Information: * Procedure Codes: 90601 COLONOSCOPY AND BIOPSY. Modifiers: PT * The named appointment provid er may or may not be the originator of this progress note, and it is not deemed complete until electronically signed by the appointment provider. Sign off status: Pending * Provider: Devika Yang MD Date: 1 Generated for Alice chavez/Nkechi/Dipeshransmitting on: 1 09/27/2024 09:36 PM EST
[2025-07-27 14:00] VITALS: BP 142/82; PULSE 84; TEMP 37.1; O2SAT 96; BMI 29.5
--- NOTE | 2025-07-27 14:00 | MHC.OFFWIV ---
Intake Vital Signs 07/27/25 14:00 Height 5 ft 5.5 in Weight 180 lb BMI 29.5 BP 142/82 H Blood Pressure Location Lt brachial Position Sitting Pulse 84 Pulse Source Pulse Oximeter Temp 98.7 F Temp Source Oral Pulse Oximetry (%) 96 Oxygen Delivery Method Room Air Intake Visit Reasons: EP hiccups for three days Intake Note: pt presents with consistent hiccups for 3 days Patient Tobacco Use Status: Never used Tobacco Allergies latex (LATEX) Allergy (Intermediate, Verified 07/27/25 14:02) RASH Penicillins (PENICILLINS) Allergy (Intermediate, Verified 07/27/25 14:02) HIVES Do you need a note to return to daycare/school/sports/work: No HPI HPI Comments History of Present Illness Details This is a 59-year-old male with a past medical history of hypertension, hyperlipidemia and gastroesophageal reflux disease presenting for evaluation of intractable hiccups. Patient states he developed hiccups after having dinner on Friday night. Patient states that they gave so come and go but will last for hours at a time. Patient denies having any nausea, vomiting, chest pain, abdominal pain or shortness of breath. He has not taken any medication for treatment of his symptoms. Patient is able to sleep, eat and drink without difficulty. He does not take any medication for management of his GERD and denies having any heartburn or symptoms associated with GERD at this time. [facility] Medical History (Updated 07/27/25 @ 14:22 by Mercedes Juarez PA-C) HTN (hypertension) Yeast infection of the skin Vitamin D deficiency Hypercholesterolemia GERD (gastroesophageal reflux disease) Surgical History H/O colonoscopy History of removal of cyst Family History Father Colon cancer Hypercholesteremia Mother Osteoporosis Thyroid disease Past heart attack Paternal Grandfather Myocardial infarction Brother In good health Brother In good health Social History Housing: Apartment Are you a primary childcare center director to a significant other at home: No Do you presently have visiting nurse or other home services: No Alcohol intake: former Comment: 2022 Patient Tobacco Use Status: Never used Tobacco e-Cigarette/Vaping Use: Never Used Second Hand Smoke Exposure: No service: No Current occupational status: employed Cognitive needs: No Hearing needs: No Vision needs: Yes (glasses) Review of Systems Const All systems reviewed & are unremarkable except as noted in HPI and below Denies chills, Denies fever(s), Denies lethargy and Denies night sweats Card Denies chest pain and Denies dyspnea Resp Denies cough, Denies dyspnea and Denies wheezing GI Denies abdominal pain, Denies heartburn, Denies nausea, Denies vomiting and Reports other (Intermittent hiccups) Reports no additional complaints Musc Reports no additional complaints Skin/Breast Reports system reviewed and no additional complaints, except as documented Neuro Reports no additional complaints Psych Reports no additional complaints Endo Reports no additional complaints Kole/Lymph Reports no additional complaints Aller/Immun Reports no additional complaints and Denies wheezing Physical Exam Vital Signs: Last Vital Signs Temp 98.7 F 07/27/25 14:00 Pulse 84 07/27/25 14:00 BP 142/82 H 07/27/25 14:00 Pulse Ox 96 07/27/25 14:00 Oxygen Delivery Method Room Air 07/27/25 14:00 BMI result Body Mass Index 29.5 Const Other: Actively hiccuping, in no acute distress. General: cooperative, healthy appearing, comfortable, no acute distress, well developed, alert, awake, Physically active and well groomed; No acute distress, ill appearing or lethargic Nutritional Appearance: average body habitus Orientation/consciousness: patient oriented x3 and No lethargic Limitations: no limitations Resp Effort & Inspection: normal respiratory effort and able to speak in complete sentences Auscultation: clear to auscultation bilaterally Cardio Rate: regular rate Rhythm: regular rhythm GI Inspection: Yes normal to inspection and No distended Palpation (GI): Soft to palpation, not firm, nontender, no guarding, not rigid and Other GI palpation findings present (Actively hiccuping) Auscultation: normal bowel sounds Skin General skin exam: no rashes or lesions noted Neuro General: patient oriented x3 Psych Appearance: grossly normal Mental Status: mental status grossly normal Insight: Good insight present (Psych) Judgement: Good judgement present (Psych) Assessment & Plan Assessment & Plan (1) Intractable hiccups: Comment: Patient is actively hiccuping throughout the examination, is in no acute distress and has no abdominal pain on clinical examination. Patient will be discharged with first-line therapy including baclofen and metoclopramide. Patient is invited to return at any time however is instructed to give the medication at least 5 days to work. Code(s): R06.6 - Hiccough Plan: Baclofen 10 mg t.i.d. in addition to metoclopramide 10 mg TID; follow up at any time as needed. Patient is aware that the medication may make him somewhat sedated. 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 Medications: New metoclopramide HCl 10 mg PO TID 21 tabs 0RF baclofen 10 mg PO TID 21 tabs 0RF Coding Level of Care Code Est Pt Level 3 (50916) Diagnoses Intractable hiccups R06.6 Time Spent (min) 20
--- OUTSIDE RECORDS SUMMARY | 2025-07-27 21:37 | XMS_ITS | Patient Health Record ---
Author Organization [facility] Address [address] [place] [address] Care Team Providers Care Sales And Marketing Professional Name Role Phone Agustin Beauchamp MD Primary Care Provider Khalif Ireland [phone] Allergies Allergen (clinical drug ingredient) Drug/Non Drug Allergy documented on EMR Reaction Allergy Type Onset Date Status adhesive tape (uncoded) Unknown Allergy Active Penicillin Unknown Drug Allergy Active Reason For Referral No Information Medications Medication SIG (Take, Route, Frequency, Duration) Notes Start Date End Date Status Lisinopril 10 MG Tablet Oral; Duration: 90 Active Calcipotriene 0.005 % Cream APPLY TO AFFECTED AREA S) OF THE BODY TWO TIMES A DAY. MIX 1:1 RATIO WITH BETAMETHASONE External; Duration: 30 Active Betamethasone Dipropionate 0.05 % Cream APPLY TO AFFECTED AREA S) OF THE BODY TWO TIMES A DAY FOR 2 WEEKS, BREAK ONE WEEK, REPEAT NEEDED External; Duration: 30 Active Immunizations Vaccine Route Administration Date Status Comme nts Influenza Unknown 03/18/2018 Administered Social History Social History Drugs/Alcohol: Social Info Question Answer Notes Alcohol Screen Did you have a drink containing alcohol in the past year? 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- [employer] Section Notes: Nonsmoker; no sig alcohol Nonsmoker; no sig alcohol Nonsmoker; no sig alcohol Problems Problem Type SNOMED Code ICD Code Onset Dates Problem Status W/U Status Risk Notes Problem Screening for malignant neoplasm of colon (668231952) Encounter for screening for malignant neoplasm of colon (Z12.11) Active confirmed Problem Diverticular disease of colon (828011422) Diverticulosis of large intestine without perforation or abscess without bleeding (K57.30) Active confirmed Problem Preprocedural examination (069148263021777) Preprocedural examination (Z01.818) Active confirmed Problem Gastroesophageal reflux disease (665394124) Gastroesophageal reflux disease, esophagitis presence not specified (K21.9) Active confirmed Problem History of adenomatous polyp of colon (072030205) Hx of adenomatous colonic polyps (Z86.010) Active confirmed Problem Family history of malignant neoplasm of gastrointestinal tract (507125224) Family history of colon cancer in father (Z80.0) Active confirmed Plan Of Treatment Pending Test Test Name Order Date Pathology 06/07/2024 Future Test Test Name Order Date COLONOSCOPY 01/21/2014 COLONOSCOPY 12/17/2018 COLONOSCOPY 02/10/2024 Insurance Providers Payer Name Payer Address Payer Phone Subscriber Number Group Number Insured Name Patient Relationship to Insured Coverage Start Date Coverage End Date [facility] [employer] PROF[employer]AL CLAIMS [address] [place] [address] [id number] 3 COLON, TANNER Self - patient is the insured Medical (General) History Medical History History ICD Code Screening colonoscopy 09-02-2008--1 small tubular adenoma removed Denies MA,DM,CVA,Lung disease,renal dise ase Colonoscopy 02/2014--hyperplastic poyp Hypertension Colonoscopy 01/2019 with a hyperplastic p olyp Surgical History Surgery Date(Month/Year) Cyst removal on back of neck
== END 2025-07-27 14:26 | disposition home or self-care (01) ==
PROVIDERS: PCP Internal Medicine; Visit Provider Physician Assistant
DX: R06.6 Hiccough (principal)